=== PATIENT | male | born 1935 | race Caucasian/White ===

== ENCOUNTER → 2021-01-09 08:50 | Outpatient (BNVA) | payer MEDICARE, OTHER, SELFPAY | PROVIDERS: PCP Internal Medicine; Visit Provider Urology | DX: N40.0 Benign prostatic hyperplasia without lower urinary tract symptoms (principal); R35.1 Nocturia | CPT/HCPCS: 51798; 99202 ==

== ENCOUNTER → 2021-01-19 09:57 | Outpatient (BNVA) | payer MEDICARE, OTHER, SELFPAY | PROVIDERS: Visit Provider Urology | DX: N40.0 Benign prostatic hyperplasia without lower urinary tract symptoms (principal) | CPT/HCPCS: 52000; 99212 ==

== ENCOUNTER → 2021-05-02 10:26 | Outpatient (REF) | payer MEDICARE, OTHER, SELFPAY ==
--- NOTE | 2021-05-02 10:44 | CA_ITS ---
Transthoracic Echocardiogram Patient (Last, First, Middle): Zaheer Christensen J Gender: Male Date of : 1935 Age: 85 Procedure Date: 05/02/2021 Procedure Type: Transthoracic Echocardiogram Location: OP Height: 170.18 cm Weight: 74.39 kg BSA: 1.86 m2 Heart Rate: bpm BP: 140 / 80 mmHg Train Clerk: JABARI/SARINA Referring MD: Brissa Castano MD Lever Operator: Tito Chavez MD Symptoms: I25.10 - Atherosclerotic heart disease of [place] coronary... Study Quality: Good ECG Rhythm: Sinus with frequent PVCs Conclusions: - 1. Normal LV systolic function with pseudonormal filling pattern 2. Moderately dilated left atrium 3. 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 Moderately elevated right ventricular systolic pressure 5. No gross pericardial effusion Findings Left Ventricle Normal left ventricular size, thickness, and systolic function. The visually estimated ejection fraction is between 60-65%. There is paradoxical septal motion consistent with post-operative status. Spectral Doppler is indicative of a pseudonormal filling pattern. E/E prime ratio is between 8 and 15 consistent with indeterminate filling pressures. Atria The left atrium is moderately dilated. Interatrial shunt cannot be excluded. The right atrium is likely dilated. Aortic Valve A bioprosthetic aortic valve is present. The prosthetic aortic valve appears to be functioning abnormally. The peak aortic gradient is 71 mmHg.The mean gradient is 39 mmHg. The aortic valve area is 0.81 cm2. There is no aortic valve regurgitation. The valve leaflets are not well visualized. The valve is well seated. This significantly increased mean gradient of 39 mm Hg with calculated valve area of 0.81 centimeters sq. This is suggestive of severe stenosis of the bioprosthetic valve. Mitral Valve There is mild anterior and posterior mitral leaflet thickening. There is trace mitral valve regurgitation. There is no mitral valve stenosis. Pulmonic Valve The pulmonic valve is likely normal. There is trace to mild pulmonic valve regurgitation. Tricuspid Valve Likely normal tricuspid valve structure and function. There is mild tricuspid valve regurgitation. Normal right atrial pressure. Moderate pulmonary hypertension is present. Great Vessels All visible segments of the aorta are normal in size. The pulmonary artery was not well visualized. Venous The inferior vena cava is normal in size and collapses greater than 50% with inspiration. Pericardium/Pleural There is no evidence of pericardial effusion. Prior Study Comparison Significant changes compared to prior study dated: 12/29/2015. Bioprosthetic aortic valve is severely stenotic, clinical correlation suggested Measurements 2D Linear Measurements IVSd: 1.10 0.6-0.9/0.6-1.0 cm LVIDd: 5.32 3.9-5.3/4.2-5.9 cm LVIDd Index: 2.86 2.4-3.2/2.2-3.1 cm/m2 LVIDs: 3.08 2.0-3.6 cm LVPWd: 0.98 0.7-1.1 cm Ao Root: 3.10 2.1-3.5 cm LA Diam: 5.30 2.7-3.8/3.0-4.0 cm LAIDs Index: 2.85 1.5-2.3 cm/m2 LV Mass: 265.01 67-162/88-224 g LV Mass Index: 142.48 43-95/49-115 g/m2 LVOT Diam: 2.00 3.0+(-)1.3 cm 2D Systolic Function EF 4C: 71.70 >55% EF 2C: 68.10 >55% EF BiP: 70.00 >55% Mitral Valve MV Pk E: 0.65 MV PK A: 0.57 MV Decel Time: 487.00 E/A: 1.10 PHT: 143.00 MVA PHT: 1.54 Decel [place]: 1.32 Aortic Valve AoV Pk Siva: 4.21 AoV Mn Siva: 2.97 AoV VTI: 1.07 AoV Pk Grad: 71.00 Aov Mn Grad: 39.00 VIANEY Cont.VTI: 0.81 LVOT LVOT Pk Siva: 1.12 LVOT Mn Siva: 0.71 LVOT VTI: 0.28 LVOT Pk Grad: 5.00 LVOT Mn Grad: 2.00 LVOT Diam: 2.00 LVOT Area: 3.14 Diastolic Function MV Pk E: 0.65 MV Pk A: 0.57 E/A: 1.10 Right Ventricle TAPSE (mm): 1.89 TVS' Siva: 11.40 Tricuspid Valve TR Pk Siva: 3.43 TR Pk Grad: 47.00 RA Press: 3.00 RVSP: 50.00 Great Vessels Aorta Ao Root-2D: 3.10 2.0-3.7 cm Ao Asc: 3.60 2.1-3.4 cm Ao Arch: 2.30 Updated in Other Vendor System with Status of Final Tito Chavez MD electronically signed on 05/02/2021 3:05:46 PM with status of Final
== END ==
LOC: HO.CARD 10:26
PROVIDERS: PCP Internal Medicine; Visit Provider Internal Medicine
DX: I25.10 Atherosclerotic heart disease of native coronary artery without angina pectoris (principal)
CPT/HCPCS: 93306

== ENCOUNTER → 2021-07-20 09:52 | Outpatient (BNVA) | payer MEDICARE, OTHER, SELFPAY | PROVIDERS: PCP Internal Medicine; Visit Provider Urology | DX: N40.1 Benign prostatic hyperplasia with lower urinary tract symptoms (principal); R35.1 Nocturia; N39.0 Urinary tract infection, site not specified | CPT/HCPCS: 51798; 99212 ==

== ENCOUNTER → 2022-01-24 10:52 | Outpatient (BNVA) | payer MEDICARE, OTHER, SELFPAY | PROVIDERS: PCP Internal Medicine; Visit Provider Urology | DX: N40.1 Benign prostatic hyperplasia with lower urinary tract symptoms (principal); R35.1 Nocturia; R39.12 Poor urinary stream; N39.0 Urinary tract infection, site not specified | CPT/HCPCS: 51798; 99212 ==

== ENCOUNTER 2022-06-17 09:30 | Outpatient (REF) | payer MEDICARE, OTHER, SELFPAY ==
[2022-06-17 09:48] LABS: MANUAL DIFF FLAG NO
[2022-06-17 10:14] LABS: Basophils Absolute Auto 0.1 X10*3/uL (0.0-0.2); Basophils Percent Auto 1.1 % (0-2); Eosinophils Absolute Auto 0.2 X10*3/uL (0.0-0.4); Eosinophils Percent Auto 4.6 % (0-4); Hematocrit 35.8 % (42.0-52.0); Hemoglobin 12.1 g/dl (14.0-18.0); Imm Gran Abs Auto 0.01 X10*3/uL (0.00-0.03); Imm Gran Pct Auto 0.2 % (0.0-0.4); Immature Retic Fraction 8.6 % (2.3-13.4); Lymphocytes Absolute Auto 1.5 X10*3/uL (1.2-4.9); Lymphocytes Percent Auto 35.2 % (20-40); Mean Corpuscular HGB Conc 33.8 g/dl (31.0-36.0); Mean Corpuscular Hemoglobin 30.7 pg (27.0-33.0); Mean Corpuscular Volume 90.9 fL (80.0-98.0); Monocytes Absolute Auto 0.4 X10*3/uL (0.1-1.2); Monocytes Percent Auto 9.6 % (2-11); Neutrophils Absolute Auto 2.2 x10*3/uL (2.0-8.3); Neutrophils Percent Auto 49.3 % (45-73); Platelet Count 145 X10*3/uL (160-400); Red Blood Count 3.94 X10*6/uL (4.60-5.80); Red Cell Distribution Width 12.3 % (11.0-16.0); Retic HGB Equivalent 35.2 pg (30.0-35.0); Reticulocytes Absolute 0.039 X10*6/uL (0.026-0.095); White Blood Count 4.4 X10*3/uL (4.8-10.8)
[2022-06-17 10:46] LABS: B Type Natriuretic Peptide 178 pg/mL (<100)
[2022-06-17 10:51] LABS: Alanine Aminotransferase 23 U/L (0-40); Albumin Level 4.3 g/dL (3.5-5.0); Alkaline Phosphatase 49 U/L (39-117); Anion Gap 15 (12-20); Aspartate Amino Transferase 28 U/L (5-37); Bilirubin Total 0.8 mg/dL (0.0-1.0); Blood Urea Nitrogen 36 mg/dL (9-16); Calcium 9.7 mg/dL (8.4-10.2); Carbon Dioxide 22 mmol/L (22-29); Chloride 108 mmol/L (96-108); Cholesterol 162 mg/dL; Estimated Glomerular Filt Rate 35; Glucose Random 96 mg/dL (60-115); HDL Cholesterol 62 mg/dL; Iron 90 mcg/dL (45-160); LDL Cholesterol Calculated 85 mg/dl; Magnesium 2.1 mg/dL (1.6-2.6); Percent Iron Saturation 32 % (15-50); Potassium 4.9 mmol/L (3.3-5.1); Sodium 140 mmol/L (135-145); Total Iron Binding Capacity 280 mcg/dL (228-428); Total Protein 6.8 g/dL (6.5-8.0); Triglycerides 75 mg/dL; Unsaturated Iron Binding 190 ug/dL
[2022-06-17 11:14] LABS: Appearance Urine Clear; Color Urine Yellow; Ferritin 69 ng/mL (20-250); Glucose Urine UA Negative (Negative); Leukocyte Esterase Urine Negative (Negative); Nitrite Urine Negative (Negative); Thyroid Stimulating Hormone 1.72 uIU/mL (0.32-4.0); UMIC TRIGGER UA YES; Urine Blood Trace (Negative); Urine Ketones Negative (Negative); Urine Protein 30 (1+) mg/dL (Neg-Trace); Vitamin D 25-OH Total 27.9 ng/mL (>30)
[2022-06-17 11:18] LABS: Bacteria Urine None Seen (None Seen); Hyaline Casts Urine 0-2 /LPF (0-2); RBC Urine 0-2 /HPF (0-2); Squamous Epithelial Cell Urine 0-2 /HPF (0-2); WBC Urine 0-5 /HPF (0-5)
[2022-06-17 11:22] LABS: Folate 11.7 ng/mL (> or = 4.0); Vitamin B12 305 pg/mL (200-900)
== END 2022-06-17 09:31 | disposition home or self-care (01) ==
LOC: HO.LAB 09:30
PROVIDERS: PCP Internal Medicine; Visit Provider Internal Medicine
DX: N18.32 Chronic kidney disease, stage 3b (principal); I25.10 Atherosclerotic heart disease of native coronary artery without angina pectoris; N40.0 Benign prostatic hyperplasia without lower urinary tract symptoms; E78.00 Pure hypercholesterolemia, unspecified; D64.9 Anemia, unspecified
CPT/HCPCS: 36415; 80053; 80061; 81001; 82306; 82607; 82728; 82746; 83540; 83735; 83880; 84439; 84443; 85025; 85045

== ENCOUNTER → 2023-01-31 10:52 | Outpatient (BNVA) | payer MEDICARE, OTHER, SELFPAY | PROVIDERS: PCP Internal Medicine; Visit Provider Urology | DX: R39.12 Poor urinary stream (principal); R35.1 Nocturia | CPT/HCPCS: 51798; 99212 ==

== ENCOUNTER 2023-06-04 10:09 | Outpatient (AMB) | payer MEDICARE, OTHER, SELFPAY ==
[2023-06-04 10:13] VITALS: BP 180/68; PULSE 51; O2SAT 97; BMI 24.4
--- NOTE | 2023-06-04 10:13 | A.OFFPC_ITS ---
Vital Signs 06/04/23 10:13 Height 5 ft 7 in Weight 156 lb BMI 24.4 BP 180/68 H Blood Pressure Location Lt brachial Position Sitting Pulse 51 Pulse Source Pulse Oximeter Pulse Oximetry (%) 97 Oxygen Delivery Method Room Air Intake Visit Reasons: CAD, Cholesterol Intake Note: Patient here for a follow up CAD, Cholesterol Joiner Helper Required: No Accompanied by: Spouse Allergies No Known Allergies Allergy (Verified 06/04/23 10:17) Medication List - Last Reconciled 06/04/23 by Brissa Castano MD amlodipine 10 mg PO DAILY aspirin (Adult Low Dose Aspirin) 81 mg PO DAILY finasteride 5 mg PO DAILY 90 days lisinopril 10 mg PO DAILY 90 days magnesium 250 mg PO DAILY omeprazole 20 mg PO DAILY rosuvastatin 40 mg PO DAILY tamsulosin 0.4 mg PO BEDTIME Tobacco use date assessed: 12/02/22 Fall risk assessment: No Falls in past year Last assessed Fall Risk: 06/04/23 Dental Screening Dental Screen Date: 06/04/23 Did you have a dental visit in the last 12 months?: No Did you have a dental problem in the last 6 months where you did not have access to dental care?: No Was dental information given to patient?: Patient has dentist HPI CAD, Cholesterol HPI Details 87-year-old male with coronary artery di sease hypertension hypercholesterolemia chronic kidney disease patient has a prosthetic aortic valve coming in for follow-up. Last seen in November 2022. Review of the notes in May patient was seen by Cardiology aortic stenosis/CAD status post AVR CABG 2012 chronic kidney disease carotid stenosis hypertension hypercholesterolemia. Was in the hospital April 2023 complains of fatigue and fogginess not able to do much yd work prosthetic aortic stenosis moderate by hemodynamics valve area of 1.2 cm cardiology does not think that the valve problem is related to patient it has feelings of dizziness patient was ordered treadmill test. Has hospitalization recently echocardiogram 45-50% EF. Patient also follows up with urology once a year BPH history of colovesical fistula no TAVR procedure has finasteride and tamsulosin. PAtient feels getting tachycardia- will be getting stress test alice. wake up in amno energy, light headed- ? was told heart rate was slow in am, no n no v, , was sob and ? chest pain, no dysuria. has an impacted cerumen and wants to clean [facility] Medical History BPH (benign prostatic hyperplasia) Chronic kidney disease GERD (gastroesophageal reflux disease) Hypercholesterolemia Hypertension Surgical History H/O aortic valve replacement History of surgery S/P tonsillectomy Anal fistula Hx of inguinal hernia surgery Social History Housing: House Alcohol intake: current Alcohol intake frequency: 0-2 drinks per day Patient Tobacco Use Status: Former Tobacco user Tobacco use type: Cigarette e-Cigarette/Vaping Use: Never Used Second Hand Smoke Exposure: No service: No Current occupational status: retired Current occupational exposures/hazards: No Cognitive needs: No Hearing needs: Yes Vision needs: Yes Questionnaire PHQ-9 Over the last 2 weeks, how often have you been bothered by any of the following problems? 1. Little interest or pleasure in doing things: not at all 2. Feeling down, depressed, or hopeless: not at all 3. Trouble falling or staying asleep, or sleeping too much: not at all 4. Feeling tired or having little energy: not at all 5. Poor appetite or overeating: not at all 6. Feeling bad about yourself - or that you are a failure or have let yourself or your family down: not at all 7. Trouble concentrating on things, such as reading the newspaper or watching television: not at all 8. Moving or speaking so slowly that other people could have noticed. Or the opposite - being so fidgety or restless that you have been moving around a lot more than usual: not at all 9. Thoughts that you would be better off or of hurting yourself in some way: not at all Total score: 0 Depression Screening Interpretation: Negative Depression Screening Done: Yes Source: Developed by Drs. Giuliano Davalos, Celia Wilson, José Manuel Mckenzie and colleagues, with an educational nel from [employer] Thrive Questionnaire Date Thrive assessed: 06/04/23 I am a: Patient What is your living situation today?: I have a steady place to live Within the past 12 months, did the food you bought not last and you didn't have the money to get more?: Never true Within the past 12 months, did you worry whether your food would run out before you got money to buy more?: Never true Do you have trouble paying for medicines?: No Do you have trouble getting transportation to medical appointments?: No Do you have trouble paying your heating and electricity bill?: No Do you have trouble taking care of your child, family member or friend?: No Do you have trouble with day-to-day activities such as bathing, preparing meals, shopping, managing finances, etc.?: No Are you currently unemployed and looking for a job?: No Are you interested in more education?: No Please select the resources that you would like help with: None Currently or been in a relationship where the following occur: no concerns reported AUDIT C Alcohol Use Questionnaire (AUDIT-C) 1. How often do you have a drink containing alcohol?: 4 or more times a week 2. How many drinks containing alcohol do you have on a typical day when you are drinking?: 1 or 2 3. How often do you have six or more drinks on one occasion?: Never Total Score: 4 BARI-7 AMB Questionnaire BARI-7 Date BARI - 7 assessed: 06/04/23 Feeling nervous, anxious, or on edge: 0 = Not at all Not being able to stop or control worryin = Not at all Worrying too much about different things: 0 = Not at all Trouble relaxin = Not at all Being so restless that it is hard to sit still: 0 = Not at all Becoming easily annoyed or irritable: 0 = Not at all Feeling afraid as if something awful might happen: 0 = Not at all Total BARI-7 score (0-4 normal; 5-9 mild; 10-14 moderate; 15-21 severe): 0 Source: Developed by Drs. Giuliano Davalos, Celia Wilson, José Manuel Mckenzie and colleagues, with an educational nel from [employer]. Physical exam (Primary Care) Vital Signs: Last Vital Signs Pulse 51 06/04/23 10:13 BP 180/68 H 06/04/23 10:13 Pulse Ox 97 06/04/23 10:13 Oxygen Delivery Method Room Air 06/04/23 10:13 BMI result Body Mass Index 24.4 Tobacco/Smoking Status: Tobacco use Status Tobacco use date assessed 12/02/22 06/04/23 10:21 Patient Tobacco Use Status Former Tobacco user 06/04/23 10:21 Tobacco use type Cigarette 06/04/23 10:21 e-Cigarette/Vaping Use Never Used 06/04/23 10:21 PHQ-9: PHQ-9 Score PHQ-9: Total score 0 06/04/23 11:06 Depression Screening Interpretation: Negative Thrive Assessment: Date of Thrive Assessment Date Thrive assessed 06/04/23 06/04/23 10:21 Currently or been in a relationship where the following occur: no concerns reported Const Other: impacted cerumen bilateral General: alert; No acute distress Eyes Conjunctivae: conjunctivae normal Resp Auscultation: clear to auscultation bilaterally Cardio Rate: regular rate Rhythm: regular rhythm GI Inspection: Yes normal to inspection Extrem General: Yes normal to inspection and No edema Office Procedures Cerumen Removal From which ear canal was the cerumen removed: bilateral Removal: irrigation, otoscope w/curette, cerumen loop/spoon and other Notes: patient tolerated procedure well, no complications and ear canal clear [id number] Irrigation/Lavage Flu Questionnaire Does the patient have a severe egg allergy?: No Does the patient have severe life threatening allergies?: No Does the patient have a fever or illness today?: No Has the patient ever had Guillain-Mahomet Syndrome?: No Has the patient ever had any past reaction to a flu shot?: No Immunizations flu vacc [id number] 6mos up(PF) 60 mcg(15 mcgx4)/0.5 mL IM syringe Performing Provider: Brissa Castano MD [facility] Administered by: MANGO Valderrama on 06/04/23 11:06 Dose Route Admin Location Dispensed Lot Number Expiration Date NDC Document Preparer Microfilming 0.5 mL IM Left Deltoid 0.5 mL [id number] 02/08/24 [id number] [employer] VIS Given Date VIS Provided VIS Publication Date 06/04/23 Single Vaccine 21 Eligibility Eligibility Date Funding Source Not [facility] Eligible 06/04/23 Private Assessment and Plan Assessment & Plan (1) Prosthetic aortic valve stenosis: Comment: January 2022, May 2023 Code(s): T82.857A - Stenosis of other cardiac prosthetic devices, implants and grafts, initial encounter Plan: Patient follows up with Cardiology and continued to be monitored (2) CAD (coronary artery disease): Comment: CABG x 3 2012 [facility] C[facility]di[facility] Brian White Code(s): I25.10 - Atherosclerotic heart disease of [place] coronary artery without angina pectoris Plan: Control the cholesterol, weight, blood pressure, continuing with the aspirin patient will be having a treadmill stress test under cardiology (3) BPH (benign prostatic hyperplasia): Code(s): N40.0 - Benign prostatic hyperplasia without lower urinary tract symptoms Plan: Continue to follow-up with Urology on finasteride 5 mg once a day and tamsulosin once a day (4) Chronic kidney disease: Comment: nephrology Code(s): N18.9 - Chronic kidney disease, unspecified Qualifiers: Chronic kidney disease stage: stage 3 (moderate) Chronic kidney disease stage 3 subtype: stage 3b (GFR 30-44) Qualified Code(s): N18.32 - Chronic kidney disease, stage 3b Plan: Keep well hydrated avoid NSAIDs (5) Hypercholesterolemia: Code(s): E78.00 - Pure hypercholesterolemia, unspecified Plan: Avoid fried foods, chicken skin, eggs, butter margarine, pastries and meat. Be it pork or beef they have a lot of cholesterol on rosuvastatin 40 goal of LDL is less than 70 and triglyceride of less than 150 (6) Hypertension: Code(s): I10 - Essential (primary) hypertension Qualifiers: Hypertension type: essential hypertension Qualified Code(s): I10 - Essential (primary) hypertension Plan: Continue with blood pressure medication. Decrease salt intake and exercise patient is taking lisinopril 10 mg once a day and amlodipine 10 mg (7) Impacted cerumen of both ears: Code(s): H61.23 - Impacted cerumen, bilateral Plan: irrigation and scoop done TM intact Orders: Orders Influenza [id number] Immunization Today Z23 - Encounter for immunization Medications: Refilled omeprazole 20 mg PO DAILY 90 caps 3RF rosuvastatin 40 mg PO DAILY 90 tabs 2RF E78.00 - Pure hypercholesterolemia, unspecified finasteride 5 mg PO DAILY 90 days 90 tabs 1RF C61 - Malignant neoplasm of prostate, N40.0 - Benign prostatic hyperplasia without lower urinary tract symptoms tamsulosin 0.4 mg PO BEDTIME 90 caps 2RF Coding Level of Care Code Est Pt Level 4 (88797) Diagnoses 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 CAD (coronary artery disease) I25.10 BPH (benign prostatic hyperplasia) N40.0 Stage 3b chronic kidney disease N18.32 Chronic kidney disease stage: stage 3 (moderate) Chronic kidney disease stage 3 subtype: stage 3b (GFR 30-44) Hypercholesterolemia E78.00 Essential hypertension I10 Hypertension type: essential hypertension Impacted cerumen of both ears H61.23 CPT Codes Office Procedure - CPT: 80383-Vzq Irrigation/Lavage ([id number])
== END 2023-06-04 11:04 | disposition home or self-care (01) ==
PROVIDERS: Visit Provider Internal Medicine
DX: N18.32 Chronic kidney disease, stage 3b (principal); T82.857A Stenosis of other cardiac prosthetic devices, implants and grafts, initial encounter; I25.10 Atherosclerotic heart disease of native coronary artery without angina pectoris; N40.0 Benign prostatic hyperplasia without lower urinary tract symptoms; E78.00 Pure hypercholesterolemia, unspecified; I10 Essential (primary) hypertension; H61.23 Impacted cerumen, bilateral; Z23 Encounter for immunization
CPT/HCPCS: 69210; 90471; 90686; 99214

== ENCOUNTER 2023-12-04 10:04 | Outpatient (AMB) | payer MEDICARE, OTHER, SELFPAY ==
--- NOTE | 2023-12-04 10:13 | MHC.OFFVIS ---
Intake Visit Reasons: 6m/PVR Intake Note: Patient is Present for Follow Up Urology Medication: Finasteride, Tamsulosin Antibiotic Allergies: None Blood Thinners: Aspirin PVR: 23 Allergies No Known Allergies Allergy (Verified 12/04/23 10:16) HPI Comments Details: Zaheer is a very pleasant male. He is a patient of Dr. Castano. He is seen for the following urologic reasons. - BPH - prior colovesical fistula Currently with finasteride and tamsulosin Recently waking more often at night with increased volume Minimal edema around ankles in end of day since got back from [place] Has had some weakness of stream and past couple of months Continue with current medications We were considering dropping tamsulosin Did not undergo TAVR procedure Lower urinary tract symptoms Current therapy tamsulosin and finasteride Current symptoms Other symptoms stream is sufficient with minimal hesitancy Cystoscopy 12/29 partial lateral crowding but otherwise open Colovesical fistula Approximately 2015 had repair with removal of diverticular segment Otherwise well Has had recurrent UTI in the past responsive to Levaquin PFSH Medical History BPH (benign prostatic hyperplasia) GERD (gastroesophageal reflux disease) Chronic kidney disease Hypercholesterolemia Hypertension Surgical History H/O aortic valve replacement History of surgery S/P tonsillectomy Anal fistula Hx of inguinal hernia surgery Social History Housing: House Alcohol intake: current Alcohol intake frequency: 0-2 drinks per day Patient Tobacco Use Status: Former Tobacco user Tobacco use type: Cigarette e-Cigarette/Vaping Use: Never Used Second Hand Smoke Exposure: No service: No Current occupational status: retired Current occupational exposures/hazards: No Cognitive needs: No Hearing needs: Yes Vision needs: Yes Review of Systems Const Denies chills and Denies fever(s) Card Reports no additional complaints and Denies syncope Resp Denies cough GI Denies abdominal pain and Denies heartburn Reports as per HPI and Denies change in libido Neuro Denies syncope Psych Denies change in libido Endo Denies change in libido Physical Exam Const General: cooperative, healthy appearing, comfortable and no acute distress Orientation/consciousness: patient oriented x3 HEENT Face and sinus: Yes normal facial exam Mouth: moist mucous membranes Neck Neck: Yes normal visual inspection, Yes full ROM and Yes trachea midline Chest Chest palpation & inspection: normal inspection of the chest Resp Effort & Inspection: normal respiratory effort, able to speak in complete sentences and no respiratory distress GI Inspection: Yes normal to inspection Back/Spine/Pelvis Cervical Spine: normal cervical lordosis Thoracic/Lumbar Spine: thoracic and lumbar spine normal to inspection Skin General skin exam: no rashes or lesions noted Neuro General: patient oriented x3, gait normal, tone normal and moves all extremities Extrem General: Yes normal to inspection and Yes capillary refill normal Office Procedures Post Void Residual Post Residual Void Post Void Residual (PVR): 23 [id number] Void Residual by ultrasound Assessment & Plan Assessment & Plan (1) Weak urinary stream: Code(s): R39.12 - Poor urinary stream Category: Medical (2) Recurrent UTI: Code(s): N39.0 - Urinary tract infection, site not specified Category: Medical (3) Nocturia more than twice per night: Code(s): R35.1 - Nocturia Category: Medical Plan Six-month follow-up PVR Orders: Orders AMB Post Void Residual by ultrasound Today R39.12 - Poor urinary stream Medications: Refilled finasteride 5 mg PO DAILY 90 days 90 tabs 1RF C61 - Malignant neoplasm of prostate, N40.0 - Benign prostatic hyperplasia without lower urinary tract symptoms tamsulosin 0.4 mg PO BEDTIME 90 caps 2RF R35.1 - Nocturia Patient Instructions: Imaging studies, laboratory and physical exam results were discussed and reviewed in detail. No major barriers to patient understanding were identified. An opportunity to ask questions regarding the treatment plan was provided. All questions were answered. The patient expressed understanding and agreement with the above treatment plan. The patient is aware they should contact our office by phone for worsening of their current condition or the appearance of new urologic symptoms. Compliance is encouraged with any medications and followup testing that is ordered. It is a privilege to participate in the urologic care of your patient. If you have any questions or concerns regarding treatment for the above conditions, or other urologic issues, please do not hesitate to contact me. The office telephone contact is [phone]. This note is constructed using voice recognition software. While every effort has been made to ensure accuracy interactive media director errors may have been included. Yours sincerely, Dr Jack Ann MD, BRITTANIE [facility] - Urology Providers of Expert, Compassionate Care for the Genitourinary System Coding Level of Care Code Est Pt Level 3 (28314) Diagnoses Weak urinary stream R39.12 Recurrent UTI N39.0 Nocturia more than twice per night R35.1 CPT Codes Post Residual Void - PVR CPT Code: 01498-[id number] Void Residual by ultrasound ([id number])
== END 2023-12-04 10:44 | disposition home or self-care (01) ==
PROVIDERS: PCP Internal Medicine; Visit Provider Urology
DX: R39.12 Poor urinary stream (principal); N39.0 Urinary tract infection, site not specified; R35.1 Nocturia
CPT/HCPCS: 99213

== ENCOUNTER → 2023-12-04 10:04 | Outpatient (BNVA) | payer MEDICARE, OTHER, SELFPAY | PROVIDERS: PCP Internal Medicine; Visit Provider Urology | DX: N40.1 Benign prostatic hyperplasia with lower urinary tract symptoms (principal); R39.12 Poor urinary stream; R35.1 Nocturia; N39.0 Urinary tract infection, site not specified; Z79.899 Other long term (current) drug therapy | CPT/HCPCS: 51798; 99212 ==

== ENCOUNTER 2024-04-01 14:11 | Outpatient (AMB) | payer MEDICARE, OTHER, SELFPAY ==
[2024-04-01 14:14] VITALS: BP 146/72; PULSE 75; O2SAT 98; BMI 23.8
--- NOTE | 2024-04-01 14:14 | A.OFFPC_ITS ---
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 Accompanied by: Spouse Allergies No Known Allergies Allergy (Verified 04/01/24 14:17) Medication List - Last Reconciled 04/01/24 by Brissa Castano MD amlodipine 10 mg PO DAILY amoxicillin 2,000 mg orally 1 hour from the procedure; aspirin (Adult Low Dose Aspirin) 81 mg PO DAILY finasteride 5 mg PO DAILY 90 days lisinopril 10 mg PO DAILY 90 days magnesium 250 mg PO DAILY omeprazole 20 mg PO DAILY rosuvastatin 40 mg PO DAILY tamsulosin 0.4 mg PO BEDTIME Tobacco use date assessed: 04/01/24 Fall risk assessment: No Falls in past year Last assessed Fall Risk: 04/01/24 Dental Screening Dental Screen Date: 04/01/24 Did you have a dental visit in the last 12 months?: Yes Did you have a dental problem in the last 6 months where you did not have access to dental care?: No Was dental information given to patient?: Patient has dentist HPI F/U CAD HPI Details 88-year-old male with coronary artery di sease with a prosthetic aortic valve BPH chronic kidney disease hypertension hypercholesterolemia coming in for follow-up. Last seen in 05/30/2023. Patient has nocturia and has been seeing Urology history of BPH and a history of colovesical fistula 2016 on finasteride and tamsulosin ultrasound done PVR of 23. Patient follows up with Cardiology last seen in July.(severe aortic stenosis 2012 angiogram multivessel CAD underwent CABG and bioprosthetic valve was placed 2012) aortic stenosis moderate valve area is 1.2 cm treadmill stress test did not show chronotropic incompetence advised echo in 1 year.. Patient has prosthetic aortic valve moderate advised retest in 1 year. PAtient just came from the hospital after skin basal post auricular and had impacted cerumen R ear but this is checked and is negative PFS Medical History BPH (benign prostatic hyperplasia) GERD (gastroesophageal reflux disease) Chronic kidney disease Hypercholesterolemia Hypertension Surgical History H/O aortic valve replacement History of surgery S/P tonsillectomy Anal fistula Hx of inguinal hernia surgery Social History Housing: House Alcohol intake: current Alcohol intake frequency: 0-2 drinks per day Patient Tobacco Use Status: Former Tobacco user Tobacco use type: Cigarette e-Cigarette/Vaping Use: Never Used Second Hand Smoke Exposure: No service: No Current occupational status: retired Current occupational exposures/hazards: No Cognitive needs: No Hearing needs: Yes Vision needs: Yes Questionnaire PHQ-9 Over the last 2 weeks, how often have you been bothered by any of the following problems? 1. Little interest or pleasure in doing things: not at all 2. Feeling down, depressed, or hopeless: not at all 3. Trouble falling or staying asleep, or sleeping too much: not at all 4. Feeling tired or having little energy: not at all 5. Poor appetite or overeating: not at all 6. Feeling bad about yourself - or that you are a failure or have let yourself or your family down: not at all 7. Trouble concentrating on things, such as reading the newspaper or watching television: not at all 8. Moving or speaking so slowly that other people could have noticed. Or the opposite - being so fidgety or restless that you have been moving around a lot more than usual: not at all 9. Thoughts that you would be better off or of hurting yourself in some way: not at all Total score: 0 Depression Screening Interpretation: Negative Depression Screening Done: Yes Source: Developed by Drs. Giuliano Davalos, eClia Wilson, José Manuel Mckenzie and colleagues, with an educational nel from [employer]. Thrive Questionnaire Date Thrive assessed: 04/01/24 I am a: Patient What is your living situation today?: I have a steady place to live Within the past 12 months, did the food you bought not last and you didn't have the money to get more?: Never true Within the past 12 months, did you worry whether your food would run out before you got money to buy more?: Never true Do you have trouble paying for medicines?: No Do you have trouble getting transportation to medical appointments?: No Do you have trouble paying your heating and electricity bill?: No Do you have trouble taking care of your child, family member or friend?: No Do you have trouble with day-to-day activities such as bathing, preparing meals, shopping, managing finances, etc.?: No Are you currently unemployed and looking for a job?: No Are you interested in more education?: No Please select the resources that you would like help with: None THRIVE Score: 0 AUDIT C Alcohol Use Questionnaire (AUDIT-C) 1. How often do you have a drink containing alcohol?: 4 or more times a week 2. How many drinks containing alcohol do you have on a typical day when you are drinking?: 1 or 2 3. How often do you have six or more drinks on one occasion?: Never Total Score: 4 BARI-7 AMB Questionnaire BARI-7 Date BARI - 7 assessed: 04/01/24 Feeling nervous, anxious, or on edge: 0 = Not at all Not being able to stop or control worryin = Not at all Worrying too much about different things: 0 = Not at all Trouble relaxin = Not at all Being so restless that it is hard to sit still: 0 = Not at all Becoming easily annoyed or irritable: 0 = Not at all Feeling afraid as if something awful might happen: 0 = Not at all Total BARI-7 score (0-4 normal; 5-9 mild; 10-14 moderate; 15-21 severe): 0 Source: Developed by Drs. Giuliano Davalos, Celia Wilson, José Manuel Mckenzie and colleagues, with an educational nel from [employer]. Physical exam (Primary Care) Vital Signs: Last Vital Signs Pulse 75 04/01/24 14:14 BP 146/72 H 04/01/24 14:14 Pulse Ox 98 04/01/24 14:14 Oxygen Delivery Method Room Air 04/01/24 14:14 BMI result Body Mass Index 23.8 Tobacco/Smoking Status: Tobacco use Status Tobacco use date assessed 04/01/24 04/01/24 14:20 Patient Tobacco Use Status Former Tobacco user 04/01/24 14:20 Tobacco use type Cigarette 04/01/24 14:20 e-Cigarette/Vaping Use Never Used 04/01/24 14:20 PHQ-9: PHQ-9 Score PHQ-9: Total score 0 04/01/24 14:20 Depression Screening Interpretation: Negative Thrive Assessment: Date of Thrive Assessment Date Thrive assessed 04/01/24 04/01/24 14:20 Const General: alert; No acute distress Eyes Conjunctivae: conjunctivae normal Resp Auscultation: clear to auscultation bilaterally Cardio Rate: regular rate Rhythm: regular rhythm GI Inspection: Yes normal to inspection Extrem General: Yes normal to inspection and No edema Assessment and Plan Assessment & Plan (1) Prosthetic aortic valve stenosis: Comment: January 2022, May 2023, July 2023 1.2 Code(s): T82.857A - Stenosis of other cardiac prosthetic devices, implants and grafts, initial encounter Plan: Has been seen by Cardiology in July and advised repeat echocardiogram in 1 year. Did have an EKG stress in the notes negative (2) CAD (coronary artery disease): Comment: CABG x 3 2012 [facility] CArdiology Brian White Code(s): I25.10 - Atherosclerotic heart disease of [place] coronary artery without angina pectoris Plan: Control the cholesterol, weight, blood pressure, takes aspirin 81 mg once a day (3) Chronic kidney disease: Comment: nephrology Code(s): N18.9 - Chronic kidney disease, unspecified Qualifiers: Chronic kidney disease stage: stage 3 (moderate) Chronic kidney disease stage 3 subtype: stage 3b (GFR 30-44) Qualified Code(s): N18.32 - Chronic kidney disease, stage 3b Plan: Keep well hydrated avoid NSAIDs continue to monitor and follow-up with Nephrology (4) Hypertension: Code(s): I10 - Essential (primary) hypertension Qualifiers: Hypertension type: essential hypertension Qualified Code(s): I10 - Essential (primary) hypertension Plan: Continue with blood pressure medication. Decrease salt intake and exercise takes lisinopril 10 mg once a day amlodipine 10 mg once a day (5) Hypercholesterolemia: Code(s): E78.00 - Pure hypercholesterolemia, unspecified Plan: Avoid fried foods, chicken skin, eggs, butter margarine, pastries and meat. Be it pork or beef they have a lot of cholesterol LDL goal of less than 70 and triglyceride of less than 150. On rosuvastatin 40 mg once a day (6) BPH (benign prostatic hyperplasia): Code(s): N40.0 - Benign prostatic hyperplasia without lower urinary tract symptoms Plan: Continue to follow-up with urology on tamsulosin and finasteride Orders: Orders B Type Natriuretic Peptide Today I25.10 - Atherosclerotic heart disease of [place] coronary artery without angina pectoris Magnesium Today I25.10 - Atherosclerotic heart disease of [place] coronary artery without angina pectoris Complete Blood Count Auto Diff Today I25.10 - Atherosclerotic heart disease of [place] coronary artery without angina pectoris Comprehensive Met. Panel Today I25.10 - Atherosclerotic heart disease of [place] coronary artery without angina pectoris Lipid Panel Today E78.00 - Pure hypercholesterolemia, unspecified, I25.10 - Atherosclerotic heart disease of [place] coronary artery without angina pectoris Thyroid Stimulating Hormone Today I25.10 - Atherosclerotic heart disease of [place] coronary artery without angina pectoris Vitamin B12 and Folate Today I25.10 - Atherosclerotic heart disease of [place] coronary artery without angina pectoris Free T4 (Free Thyroxine) Today I25.10 - Atherosclerotic heart disease of [place] coronary artery without angina pectoris Phosphorus Today I25.10 - Atherosclerotic heart disease of [place] coronary artery without angina pectoris Medications: Refilled amoxicillin (4 x 500 mg) 2,000 mg orally 1 hour from the procedure; 8 caps 2RF E78.00 - Pure hypercholesterolemia, unspecified, I25.10 - Atherosclerotic heart disease of [place] coronary artery without angina pectoris Coding Level of Care Code Est Pt Level 4 (85109) Complex EM visit Add On G2211 Diagnoses 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 CAD (coronary artery disease) I25.10 Stage 3b chronic kidney disease N18.32 Chronic kidney disease stage: stage 3 (moderate) Chronic kidney disease stage 3 subtype: stage 3b (GFR 30-44) Essential hypertension I10 Hypertension type: essential hypertension Hypercholesterolemia E78.00 BPH (benign prostatic hyperplasia) N40.0
== END 2024-04-01 15:03 | disposition home or self-care (01) ==
PROVIDERS: PCP Internal Medicine; Visit Provider Internal Medicine
DX: I12.9 Hypertensive chronic kidney disease with stage 1 through stage 4 chronic kidney disease, or unspecified chronic kidney disease (principal); N18.32 Chronic kidney disease, stage 3b; T82.857A Stenosis of other cardiac prosthetic devices, implants and grafts, initial encounter; I25.10 Atherosclerotic heart disease of native coronary artery without angina pectoris; E78.00 Pure hypercholesterolemia, unspecified; N40.0 Benign prostatic hyperplasia without lower urinary tract symptoms
CPT/HCPCS: 99214; G2211

== ENCOUNTER 2024-06-03 11:29 | Outpatient (AMB) | payer MEDICARE, OTHER, SELFPAY ==
--- NOTE | 2024-06-03 11:30 | A.OFFVIS_ITS ---
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 He is a patient of Dr. Castano. He is seen for the following urologic reasons. - BPH - prior colovesical fistula Six-month follow-up Continue with finasteride and tamsulosin Did not undergo TAVR procedure Lower urinary tract symptoms Current therapy tamsulosin and finasteride Current symptoms Other symptoms stream is sufficient with minimal hesitancy Cystoscopy 12/29 partial lateral crowding but otherwise open Colovesical fistula Approximately 2015 had repair with removal of diverticular segment Otherwise well Has had recurrent UTI in the past responsive to Levaquin PFSH Medical History BPH (benign prostatic hyperplasia) GERD (gastroesophageal reflux disease) Chronic kidney disease Hypercholesterolemia Hypertension Surgical History H/O aortic valve replacement History of surgery S/P tonsillectomy Anal fistula Hx of inguinal hernia surgery Social History Housing: House Alcohol intake: current Alcohol intake frequency: 0-2 drinks per day Patient Tobacco Use Status: Former Tobacco user Tobacco use type: Cigarette e-Cigarette/Vaping Use: Never Used Second Hand Smoke Exposure: No service: No Current occupational status: retired Current occupational exposures/hazards: No Cognitive needs: No Hearing needs: Yes Vision needs: Yes Office Procedures Post Void Residual Post Residual Void Post Void Residual (PVR): 0 14129-Uatd Void Residual by ultrasound Assessment & Plan Assessment & Plan (1) BPH (benign prostatic hyperplasia): Code(s): N40.0 - Benign prostatic hyperplasia without lower urinary tract symptoms Category: Medical (2) Nocturia more than twice per night: Code(s): R35.1 - Nocturia Category: Medical Plan Twelve month follow-up Orders: Orders AMB Post Void Residual by ultrasound Today R39.12 - Poor urinary stream Medications: Changed From tamsulosin 0.4 mg PO BEDTIME 90 caps 2RF R35.1 - Nocturia To tamsulosin 0.4 mg PO BEDTIME 90 days 90 caps 3RF R35.1 - Nocturia Refilled finasteride 5 mg PO DAILY 90 days 90 tabs 3RF C61 - Malignant neoplasm of prostate, N40.0 - Benign prostatic hyperplasia without lower urinary tract symptoms Patient Instructions: Imaging studies, laboratory and physical exam results were discussed and reviewed in detail. No major barriers to patient understanding were identified. An opportunity to ask questions regarding the treatment plan was provided. All questions were answered. The patient expressed understanding and agreement with the above treatment plan. The patient is aware they should contact our office by phone for worsening of their current condition or the appearance of new urologic symptoms. Compliance is encouraged with any medications and followup testing that is ordered. It is a privilege to participate in the urologic care of your patient. If you have any questions or concerns regarding treatment for the above conditions, or other urologic issues, please do not hesitate to contact me. The office telephone contact is [phone]. This note is constructed using voice recognition software. While every effort has been made to ensure accuracy associate professor of pathology errors may have been included. Yours sincerely, Dr Jack Ann MD, [facility] - Urology Providers of Expert, Compassionate Care for the Genitourinary System Coding Level of Care Code Est Pt Level 3 (31639) Diagnoses BPH (benign prostatic hyperplasia) N40.0 Nocturia more than twice per night R35.1 CPT Codes Post Residual Void - PVR CPT Code: 83430-[facility] Void Residual by ultrasound ([id number])
== END 2024-06-03 12:08 | disposition home or self-care (01) ==
PROVIDERS: PCP Internal Medicine; Visit Provider Urology
DX: N40.0 Benign prostatic hyperplasia without lower urinary tract symptoms (principal); R35.1 Nocturia
CPT/HCPCS: 99213

== ENCOUNTER → 2024-06-03 11:29 | Outpatient (BNVA) | payer MEDICARE, OTHER, SELFPAY | PROVIDERS: PCP Internal Medicine; Visit Provider Urology | DX: N40.1 Benign prostatic hyperplasia with lower urinary tract symptoms (principal); R35.1 Nocturia; R39.12 Poor urinary stream; C61 Malignant neoplasm of prostate; Z79.899 Other long term (current) drug therapy | CPT/HCPCS: 51798; 99212 ==

== ENCOUNTER 2024-07-01 09:45 | Outpatient (AMB) | payer MEDICARE, OTHER, SELFPAY ==
--- NOTE | 2024-07-01 09:46 | MHC.PC.OV ---
Vital Signs 07/01/24 09:47 07/01/24 10:31 Height 5 ft 7 in Weight 154 lb 0.2 oz BMI 24.1 BP 174/68 H 162/70 H Blood Pressure Location Lt brachial Lt brachial Position Sitting Sitting Pulse 52 Pulse Source Pulse Oximeter Pulse Oximetry (%) 99 Oxygen Delivery Method Room Air Intake Visit Reasons: 3 Month F/U Allergies No Known Allergies Allergy (Verified 07/01/24 09:50) Medication List - Last Reconciled 07/01/24 by Jane William PA-C amlodipine 10 mg PO DAILY amoxicillin 2,000 mg orally 1 hour from the procedure; aspirin (Adult Low Dose Aspirin) 81 mg PO DAILY finasteride 5 mg PO DAILY 90 days lisinopril 10 mg PO DAILY 90 days magnesium 250 mg PO DAILY omeprazole 20 mg PO DAILY rosuvastatin 40 mg PO DAILY tamsulosin 0.4 mg PO BEDTIME 90 days Tobacco use date assessed: 04/01/24 Fall risk assessment: No Falls in past year Last assessed Fall Risk: 07/01/24 Dental Screening Dental Screen Date: 04/01/24 HPI 3 Month F/U HPI Details 88-year-old male with past medical history of coronary artery disease with a prosthetic aortic valve, BPH, chronic kidney disease, hypertension, hypercholesterolemia last seen by Dr. Castano 04/01/2024 coming in for follow up.? In review of the notes patient was seen by Urology 06/03/2024 continue on current medication and follow up in 6 months. 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 He has not taken his blood pressures at home but he does have elevated blood pressures while in the office. [facility] Medical History BPH (benign prostatic hyperplasia) GERD (gastroesophageal reflux disease) Chronic kidney disease Hypercholesterolemia Hypertension Surgical History H/O aortic valve replacement History of surgery S/P tonsillectomy Anal fistula Hx of inguinal hernia surgery Social History Housing: House Alcohol intake: current Alcohol intake frequency: 0-2 drinks per day Patient Tobacco Use Status: Former Tobacco user Tobacco use type: Cigarette e-Cigarette/Vaping Use: Never Used Second Hand Smoke Exposure: No service: No Current occupational status: retired Current occupational exposures/hazards: No Cognitive needs: No Hearing needs: Yes Vision needs: Yes Questionnaire Thrive Questionnaire Date Thrive assessed: 04/01/24 AUDIT C Alcohol Use Questionnaire (AUDIT-C) 2. How many drinks containing alcohol do you have on a typical day when you are drinking?: 1 or 2 3. How often do you have six or more drinks on one occasion?: Never Total Score: 0 BARI-7 AMB Questionnaire BARI-7 Date BARI - 7 assessed: 04/01/24 Source: Developed by Drs. Giuliano Davalos, Celia Wilson, José Manuel Mckenzie and colleagues, with an educational nel from [employer]. Review of Systems Const Denies body aches, Denies chills, Denies fever(s), Denies headache(s) and Denies poor appetite Eyes Reports no additional complaints ENT Denies dizziness and Denies headache(s) Card Denies chest pain, Denies syncope, Denies edema, Denies irregular heart rhythm, Denies lightheadedness, Denies dyspnea, Denies dyspnea on exertion and Denies orthopnea Resp Denies cough, Denies dyspnea and Denies dyspnea on exertion GI Denies nausea and Denies vomiting Reports no additional complaints Musc Reports no additional complaints and Denies abnormal gait Skin/Breast Reports system reviewed and no additional complaints, except as documented Neuro Denies abnormal gait, Denies dizziness, Denies syncope and Denies headache(s) Psych Reports no additional complaints Physical exam (Primary Care) Vital Signs: Last Vital Signs Pulse 52 07/01/24 09:47 BP 162/70 H 07/01/24 10:31 Pulse Ox 99 07/01/24 09:47 Oxygen Delivery Method Room Air 07/01/24 09:47 BMI result Body Mass Index 24.1 Tobacco/Smoking Status: Tobacco use Status Tobacco use date assessed 04/01/24 07/01/24 09:52 Patient Tobacco Use Status Former Tobacco user 07/01/24 09:52 Tobacco use type Cigarette 07/01/24 09:52 e-Cigarette/Vaping Use Never Used 07/01/24 09:52 Thrive Assessment: Date of Thrive Assessment Date Thrive assessed 04/01/24 07/01/24 09:52 Const General: cooperative, healthy appearing, comfortable and no acute distress Orientation/consciousness: patient oriented x3 HENMT Head: Yes normocephalic Ears: hearing grossly normal bilaterally and Abnormal EAC present excessive cerumen bilateral General nose exam: Normal external nose present Eyes General: appearance normal, both eyes and all related structures Conjunctivae: conjunctivae normal Neck Neck: Yes full ROM and Yes no lymphadenopathy Resp Effort & Inspection: normal respiratory effort Auscultation: clear to auscultation bilaterally, no crackles, no rales, no rhonchi and no wheezes Cardio Rate: regular rate Rhythm: regular rhythm Skin General skin exam: no rashes or lesions noted Neuro General: patient oriented x3 Gait exam (Neuro): Normal gait present Extrem General: Yes normal to inspection, Yes full ROM and No edema Psych Affect: normal affect Attitude: cooperative Insight: Good insight present (Psych) Judgement: Good judgement present (Psych) Coding Level of Care Code Est Pt Level 3 (41524) Diagnoses Impacted cerumen of both ears H61.23 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 CAD (coronary artery disease) I25.10 Stage 3b chronic kidney disease N18.32 Chronic kidney disease stage: stage 3 (moderate) Chronic kidney disease stage 3 subtype: stage 3b (GFR 30-44) Hypercholesterolemia E78.00 Essential hypertension I10 Hypertension type: essential hypertension Assessment & Plan Assessment & Plan (1) Impacted cerumen of both ears: Code(s): H61.23 - Impacted cerumen, bilateral Category: Medical Plan: Patient has a impacted cerumen of both ears some of which was removed today. Advised to book an ear lavage for cleaning. (2) Prosthetic aortic valve stenosis: Comment: January 2022, May 2023, July 2023 1.2 Code(s): T82.857A - Stenosis of other cardiac prosthetic devices, implants and grafts, initial encounter Category: Medical Plan: Continue to follow with Cardiology. Recently had echocardiogram completed we will request these results from [facility]. (3) CAD (coronary artery disease): Comment: CABG x 3 2012 [facility] CArdiology Brian White Code(s): I25.10 - Atherosclerotic heart disease of [place] coronary artery without angina pectoris Category: Medical Plan: Advised good control of blood pressure, cholesterol and blood sugars. BNP elevated we will redraw. (4) Chronic kidney disease: Comment: nephrology Code(s): N18.9 - Chronic kidney disease, unspecified Category: Medical Qualifiers: Chronic kidney disease stage: stage 3 (moderate) Chronic kidney disease stage 3 subtype: stage 3b (GFR 30-44) Qualified Code(s): N18.32 - Chronic kidney disease, stage 3b Plan: Continue to follow with Nephrology and avoid kidney irritants such as NSAIDs and stay well hydrated. (5) Hypercholesterolemia: Code(s): E78.00 - Pure hypercholesterolemia, unspecified Category: Medical Plan: Avoid foods that are high in cholesterol such as red meat, fried foods, eggs and baked goods. Triglyceride goal of less than 150 and LDL goal of less than 70. Continue on rosuvastatin. (6) Hypertension: Code(s): I10 - Essential (primary) hypertension Category: Medical Qualifiers: Hypertension type: essential hypertension Qualified Code(s): I10 - Essential (primary) hypertension Plan: Continue on current blood pressure medication. Avoid salt intake and encourage healthy diet and regular exercise. Blood pressure elevated the last 2 office visits even when retaken. Patient does not take blood pressure at home. And discussion with Dr. Castano we will add carvedilol 3.125 mg b.i.d. to the regimen for better blood pressure control. Plan This note was constructed using voice recognition software. While every effort has been made to ensure accuracy and can filling room sweeper, still areas may have been included sometimes these areas may affect the content or meeting of the given symptoms. Total time spent caring for the patient today was 20 minutes. This includes time spent before the visit reviewing the chart, time spent during the visit, and time spent after the visit and documentation. Orders: Orders B Type Natriuretic Peptide Today I25.10 - Atherosclerotic heart disease of [place] coronary artery without angina pectoris Medications: New carvedilol must administer with a meal/food 3.125 mg PO BID 60 tabs 2RF
[2024-07-01 09:47] VITALS: BP 174/68; PULSE 52; O2SAT 99; BMI 24.1
[2024-07-01 10:31] VITALS: BP 162/70
== END 2024-07-01 10:36 | disposition home or self-care (01) ==
PROVIDERS: PCP Internal Medicine
DX: H61.23 Impacted cerumen, bilateral (principal); T82.857A Stenosis of other cardiac prosthetic devices, implants and grafts, initial encounter; I25.10 Atherosclerotic heart disease of native coronary artery without angina pectoris; N18.32 Chronic kidney disease, stage 3b; E78.00 Pure hypercholesterolemia, unspecified; I10 Essential (primary) hypertension

== ENCOUNTER → 2024-07-01 09:45 | Outpatient (BNVA) | payer MEDICARE, OTHER, SELFPAY | PROVIDERS: PCP Internal Medicine | DX: H61.23 Impacted cerumen, bilateral (principal); T82.857A Stenosis of other cardiac prosthetic devices, implants and grafts, initial encounter; I25.10 Atherosclerotic heart disease of native coronary artery without angina pectoris; E78.00 Pure hypercholesterolemia, unspecified; I12.9 Hypertensive chronic kidney disease with stage 1 through stage 4 chronic kidney disease, or unspecified chronic kidney disease; N18.32 Chronic kidney disease, stage 3b | CPT/HCPCS: 99212 ==

== ENCOUNTER 2024-10-18 09:54 | Outpatient (AMB) | payer MEDICARE, OTHER, SELFPAY ==
[2024-10-18 09:58] VITALS: BP 132/80; PULSE 79; O2SAT 98; BMI 23.4
--- NOTE | 2024-10-18 09:58 | A.OFFPC_ITS ---
Vital Signs 10/18/24 09:58 Height 5 ft 7 in Weight 149 lb 8 oz BMI 23.4 BP 132/80 Blood Pressure Location Lt brachial Position Sitting Pulse 79 Pulse Source Pulse Oximeter Pulse Oximetry (%) 98 Oxygen Delivery Method Room Air Intake Visit Reasons: 3 month f/u Outreach Associate Required: No Accompanied by: Self / Same As Patient Allergies No Known Allergies Allergy (Verified 10/18/24 10:00) Medication List - Last Reviewed 10/18/24 by MANGO Crowley amlodipine 10 mg PO DAILY amoxicillin 2,000 mg orally 1 hour from the procedure; aspirin (Adult Low Dose Aspirin) 81 mg PO DAILY finasteride 5 mg PO DAILY 90 days furosemide 20 mg PO DAILY lisinopril 10 mg PO DAILY 90 days magnesium 250 mg PO DAILY omeprazole 20 mg PO DAILY rosuvastatin 40 mg PO DAILY tamsulosin 0.4 mg PO BEDTIME 90 days Tobacco use date assessed: 10/18/24 Fall risk assessment: No Falls in past year Last assessed Fall Risk: 10/18/24 Dental Screening Dental Screen Date: 10/18/24 Did you have a dental visit in the last 12 months?: Yes Did you have a dental problem in the last 6 months where you did not have access to dental care?: No Was dental information given to patient?: Patient has dentist HPI 3 month f/u HPI Details 89-year-old male with past medical histo ry of 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 In review of the notes, patient was seen by his bobtailer 08/21/2024 improvement in renal function after discontinuation of Lasix with plan to repeat labs in 2 weeks and initiation with lower dose of Lasix plan to follow up with Nephrology. Presenting with arthritis and heart failure management concerns. The arthritis symptoms emerged acutely in July, causing significant joint pain, notably in shoulders and hands, affecting his ability to perform daily tasks. Inflamed symptoms are more pronounced at night. He has been using furosemide for heart failure to mitigate fluid retention but experiences exacerbated symptoms while traveling. Blood pressure levels, previously unstable, have improved recently. The patient had a dermatological assessment for basal cell carcinoma, where a conservative management plan was adopted due to surgical risks. He also experiences dry mouth and eyes, likely secondary to his heart medication. [facility] Medical History BPH (benign prostatic hyperplasia) GERD (gastroesophageal reflux disease) Chronic kidney disease Hypercholesterolemia Hypertension Surgical History H/O aortic valve replacement History of surgery S/P tonsillectomy Anal fistula Hx of inguinal hernia surgery Social History Housing: House Alcohol intake: current Alcohol intake frequency: 0-2 drinks per day Patient Tobacco Use Status: Former Tobacco user Tobacco use type: Cigarette e-Cigarette/Vaping Use: Never Used Second Hand Smoke Exposure: No service: No Current occupational status: retired Current occupational exposures/hazards: No Cognitive needs: No Hearing needs: Yes Vision needs: Yes Questionnaire PHQ-9 Over the last 2 weeks, how often have you been bothered by any of the following problems? 1. Little interest or pleasure in doing things: not at all 2. Feeling down, depressed, or hopeless: not at all 3. Trouble falling or staying asleep, or sleeping too much: not at all 4. Feeling tired or having little energy: not at all 5. Poor appetite or overeating: not at all 6. Feeling bad about yourself - or that you are a failure or have let yourself or your family down: not at all 7. Trouble concentrating on things, such as reading the newspaper or watching television: not at all 8. Moving or speaking so slowly that other people could have noticed. Or the opposite - being so fidgety or restless that you have been moving around a lot more than usual: not at all 9. Thoughts that you would be better off or of hurting yourself in some way: not at all Total score: 0 Depression Screening Interpretation: Negative Depression Screening Done: Yes Source: Developed by Drs. Giuliano Davalos, Celia Wilson, José Manuel Mckenzie and colleagues, with an educational nel from [employer]. Thrive Questionnaire Date Thrive assessed: 10/18/24 I am a: Patient What is your living situation today?: I have a steady place to live Within the past 12 months, did the food you bought not last and you didn't have the money to get more?: Never true Within the past 12 months, did you worry whether your food would run out before you got money to buy more?: Never true Do you have trouble paying for medicines?: No Do you have trouble getting transportation to medical appointments?: No Do you have trouble paying your heating and electricity bill?: No Do you have trouble taking care of your child, family member or friend?: No Do you have trouble with day-to-day activities such as bathing, preparing meals, shopping, managing finances, etc.?: No Are you currently unemployed and looking for a job?: No Are you interested in more education?: No Please select the resources that you would like help with: None Currently or been in a relationship where the following occur: No concerns reported THRIVE Score: 0 AUDIT C Alcohol Use Questionnaire (AUDIT-C) 1. How often do you have a drink containing alcohol?: Monthly or less 2. How many drinks containing alcohol do you have on a typical day when you are drinking?: 1 or 2 3. How often do you have six or more drinks on one occasion?: Never Total Score: 1 BARI-7 AMB Questionnaire BARI-7 Date BARI - 7 assessed: 10/18/24 Feeling nervous, anxious, or on edge: 0 = Not at all Not being able to stop or control worryin = Not at all Worrying too much about different things: 0 = Not at all Trouble relaxin = Not at all Being so restless that it is hard to sit still: 0 = Not at all Becoming easily annoyed or irritable: 0 = Not at all Feeling afraid as if something awful might happen: 0 = Not at all Total BARI-7 score (0-4 normal; 5-9 mild; 10-14 moderate; 15-21 severe): 0 Source: Developed by Drs. Giuliano Davalos, Celia Wilson, José Manuel Mckenzie and colleagues, with an educational nel from [employer]. Review of Systems Const Denies body aches, Denies chills, Denies fever(s), Denies headache(s) and Denies poor appetite Eyes Reports no additional complaints ENT Denies dysphagia, Denies dizziness, Denies headache(s) and Denies odynophagia Card Denies chest pain, Denies syncope, Denies edema, Denies irregular heart rhythm, Denies lightheadedness and Denies dyspnea Resp Denies cough and Denies dyspnea GI Denies abdominal pain, Denies constipation, Denies dysphagia, Denies diarrhea, Denies nausea, Denies odynophagia and Denies vomiting Reports no additional complaints Musc Details: Bilateral hand and shoulder pain Reports no additional complaints and Denies abnormal gait Skin/Breast Reports system reviewed and no additional complaints, except as documented Neuro Denies abnormal gait, Denies dizziness, Denies syncope and Denies headache(s) Psych Reports no additional complaints Physical exam (Primary Care) Vital Signs: Oxygen Delivery Method Room Air 10/18/24 09:58 Tobacco/Smoking Status: Tobacco use Status Tobacco use date assessed 04/01/24 07/01/24 09:52 Patient Tobacco Use Status Former Tobacco user 07/01/24 09:52 Tobacco use type Cigarette 07/01/24 09:52 e-Cigarette/Vaping Use Never Used 07/01/24 09:52 Depression Screening Interpretation: Negative Thrive Assessment: Date of Thrive Assessment Date Thrive assessed 04/01/24 07/01/24 09:52 Currently or been in a relationship where the following occur: No concerns reported Const General: cooperative, healthy appearing, comfortable and no acute distress Orientation/consciousness: patient oriented x3 HENMT Head: Yes normocephalic Ears: hearing grossly normal bilaterally General nose exam: Normal external nose present Eyes General: appearance normal, both eyes and all related structures Conjunctivae: conjunctivae normal Neck Neck: Yes full ROM and Yes no lymphadenopathy Resp Effort & Inspection: normal respiratory effort Auscultation: clear to auscultation bilaterally, no crackles, no rales, no rhonchi and no wheezes Cardio Rate: regular rate Rhythm: regular rhythm Skin General skin exam: no rashes or lesions noted Neuro General: patient oriented x3 Gait exam (Neuro): Normal gait present Extrem Other: No tenderness to palpation or swelling of bilateral hands without overlying skin changes. Intact pulses and sensation. 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 Recently had echocardiogram completed we will request these results from [facility]. (2) CAD (coronary artery disease): Comment: CABG x 3 2012 [facility] Brian White Code(s): I25.10 - Atherosclerotic heart disease of [place] coronary artery without angina pectoris Category: Medical Plan: Advised good control of blood pressure, cholesterol and blood sugars. Requested last lab results (3) Chronic kidney disease: Comment: nephrology Code(s): N18.9 - Chronic kidney disease, unspecified Category: Medical Qualifiers: Chronic kidney disease stage: stage 3 (moderate) Chronic kidney disease stage 3 subtype: stage 3b (GFR 30-44) Qualified Code(s): N18.32 - Chronic kidney disease, stage 3b Plan: Continue to follow with Nephrology and avoid kidney irritants such as NSAIDs and stay well hydrated. (4) Hypercholesterolemia: Code(s): E78.00 - Pure hypercholesterolemia, unspecified Category: Medical Plan: Avoid foods that are high in cholesterol such as red meat, fried foods, eggs and baked goods. Triglyceride goal of less than 150 and LDL goal of less than 70. Continue on rosuvastatin. (5) Hypertension: Code(s): I10 - Essential (primary) hypertension Category: Medical Qualifiers: Hypertension type: essential hypertension Qualified Code(s): I10 - Essential (primary) hypertension Plan: Continue on current blood pressure medication. Avoid salt intake and encourage healthy diet and regular exercise. At his last visit carvedilol was added to his medication regimen however he has not been taking it. He has seen an improvement in his blood pressures at home and blood pressure was within normal limits today even when retaken. Advised patient to continue to monitor blood pressure and follow up with Nephrology in November (6) Joint pain: Comment: bilateral hand pain Code(s): M25.50 - Pain in unspecified joint Category: Medical Plan: In terms of arthritis, further diagnostic measures include x-rays and potential additional blood investigations to exclude rheumatoid arthritis. Meanwhile, topical treatments are suggested for symptomatic relief of joint pain. (7) Diastolic heart failure: Comment: [place] [facility] [facility] Code(s): I50.30 - Unspecified diastolic (congestive) heart failure Category: Medical Plan: The patient will maintain his current regimen of furosemide for heart failure management, with a follow-up nephrology consultation to reassess long-term use. No symptoms of heart failure and no signs of fluid overload on exam. Plan This note was constructed using voice recognition software. While every effort has been made to ensure accuracy and entry level accountant, still areas may have been included sometimes these areas may affect the content or meeting of the given symptoms. Total time spent caring for the patient today was 20 minutes. This includes time spent before the visit reviewing the chart, time spent during the visit, and time spent after the visit and documentation. Patient was informed and verbally consented to the use of an ambient scribe for clinic note docume ntation during this visit. Orders: Orders XR Hand Bilat min 3v Today M25.50 - Pain in unspecified joint Rheumatoid Factor Today M25.50 - Pain in unspecified joint Erythrocyte Sedimentation Rate Today M25.50 - Pain in unspecified joint C Reactive Protein Today M25.50 - Pain in unspecified joint
--- OUTSIDE RECORDS SUMMARY | 2024-10-18 10:51 | XMS_ITS | Clinical Summary ---
Author Organization [address] [place] [address] [place] [phone] Phone Care Team Providers Care Stockfeed Miller Name Role Phone Leana Savage PT Primary Care Provid er Allergies No known active allergies Medications amLODIPine (NORVASC) 10 mg tablet Take 1 tablet (10 mg total) by mouth 1 (one) time each day. 06/24/2024 Active carvediloL (COREG) 3.125 mg tablet TAKE 1 TABLET BY MOUTH TWICE A DAY WITH A MEAL/FOOD 07/01/2024 Active lisinopriL (PRINIVIL,ZESTR IL) 10 mg tablet TAKE 1 TABLET ORALLY DAILY FOR 90 DAYS 06/03/2024 Active omeprazole (PriLOSEC) [address] capsule Take 1 capsule (20 mg total) by mouth 1 (one) time each day. 05/02/2024 Active rosuvastatin (CRESTOR) 40 mg tablet Take 1 tablet (40 mg total) by mouth 1 (one) time each day. 04/23/2024 Active tamsulosin (FLOMAX) 0.4 mg 24 hr capsule Take 1 capsule (0.4 mg total) by mouth. at bedtime 04/11/2024 Active Social History Tobacco Use Types Packs/Day Years Used Date Smoking Tobacco: Never Assessed Sex and Gender Information Value Date Recorded Sex Assigned at Not on file Legal Sex Male 2:47 AM EST Gender Identity Not on file Sexual Orientation Not on file Last Filed Vital Signs Vital Sign Reading Time Taken Comments Blood Pressure 143/60 07/06/2024 2:10 PM EST Pulse 42 07/06/2024 2:10 PM EST Temperature 36.5 ??C (97.7 ??F) 07/06/2024 2:10 PM ES T Respiratory Rate - - Oxygen Saturation 97% 07/06/2024 2:10 PM EST Inhaled Oxygen Concentration - - Weight - - Height - - Body Mass Index - - Plan of Treatment Health Maintenance Due Date Last Done Comments DTaP,Tdap,and Td Vaccines (1 - Tdap) 1954 RSV Immunization Patients 60+ Years Old (1 - 1-dose 75+ series) 2010 Zoster Vaccines (2 of 3) 07/02/2013 05/07/2013 Pneumococcal Vaccine: 50+ Years (2 of 2 - PCV) 02/12/2014 02/12/2013 Cholesterol Screening (Lipid Panel) 07/14/2022 Depression Screening 07/14/2022 Falls Risk Assessment 07/14/2022 Medicare Annual Wellness Visit 07/14/2022 Social Influencers of Health Screening 07/14/2022 Hypertension/CHF/CAD Annual BMP Blood Test 07/06/2024 COVID-19 Vaccine Completed 06/07/2024, 07/2022, 07/23/2021 Influenza Vaccine Completed 06/07/2024, , 04/22/2022, Additional history exists HIB Vaccines Aged Out No longer eligi ble based on patient's age to complete this topic HPV Vaccines Aged Out No longer eligi ble based on patient's age to complete this topic Hepatitis A Vaccines Aged Out No long er eligible based on patient's age to complete this topic Hepatitis B Vaccines Aged Out No long er eligible based on patient's age to complete this topic IPV Vaccines Aged Out No longer eligi ble based on patient's age to complete this topic MMR Vaccines Aged Out No longer eligi ble based on patient's age to complete this topic Meningococcal ACWY Vaccine Aged Out N o longer eligible based on patient's age to complete this topic Meningococcal B Vacine Aged Out No lo nger eligible based on patient's age to complete this topic RSV Immunization Patients Under 20 months Aged Out No longer eligible based on patient's age to complete this topic Varicella Vaccines Aged Out No longer eligible based on patient's age to complete this topic Insurance [facility] [place] [address] MEDICARE UNICARE Care Teams Stockfeed Miller Relationship Specialty Start Date End Date Leana Savage, PT [address] [place] [phone] PCP - General Physical Therapy 02/20/21
== END 2024-10-18 10:37 | disposition home or self-care (01) ==
PROVIDERS: PCP Internal Medicine
DX: I12.9 Hypertensive chronic kidney disease with stage 1 through stage 4 chronic kidney disease, or unspecified chronic kidney disease (principal); N18.32 Chronic kidney disease, stage 3b; I50.30 Unspecified diastolic (congestive) heart failure; T82.857A Stenosis of other cardiac prosthetic devices, implants and grafts, initial encounter; I25.10 Atherosclerotic heart disease of native coronary artery without angina pectoris; E78.00 Pure hypercholesterolemia, unspecified; M25.50 Pain in unspecified joint

== ENCOUNTER 2024-10-18 09:54 | Outpatient (REF) | payer MEDICARE, OTHER, SELFPAY ==
--- NOTE | ~2024-10-18 | XR_ITS ---
EXAMINATION: XR HAND/WRIST, RIGHT XR HAND/WRIST, LEFT CLINICAL INFORMATION: M25.50 - Pain in unspecified joint ; bilateral hand pain x4 months. No injury. COMPARISON: 12/29/2015. TECHNIQUE: PA, lateral, and [place] views of the each hand and wrist. FINDINGS: RIGHT HAND/WRIST: No fracture, dislocation, or suspicious bone lesion. Normal bone mineralization. No gross periarticular osteopenia. Mild radiocarpal joint space narrowing, mild degenerative arthritis in the first CMC joint, and mild degenerative arthritis in the first MCP. MCPs appear preserved without definite erosions. Mild to moderate diffuse DIP joint arthritis, likely degenerative, without definite PIP joint involvement. Mild arthritis in the interphalangeal joint of the thumb. No chondrocalcinosis. Vascular calcifications throughout the soft tissues. LEFT HAND/WRIST: No fracture, dislocation, or suspicious bone lesion. Normal bone mineralization. No gross periarticular osteopenia. Mild radiocarpal joint space narrowing, mild degenerative arthritis in the first CMC joint, and mild degenerative arthritis in the first MCP. MCPs appear preserved without definite erosions. Mild to moderate diffuse DIP joint arthritis, likely degenerative, without definite PIP joint involvement. Mild arthritis in the interphalangeal joint of the thumb. No chondrocalcinosis. Vascular calcifications throughout the soft tissues. XR/XR Hand Bilat min 3v IMPRESSION: 1. Degenerative arthritis as detailed, symmetric in both hands/wrists, predominantly involving the DIP joints, first MCP joint, and first CMC joints. 2. No definite erosive arthropathy identified. Electronically signed by: Stanley De León MD 10/19/2024 09:40 AM EDT
--- OUTSIDE RECORDS SUMMARY | 2024-10-18 12:12 | XMS_ITS | Clinical Summary ---
Author Organization [address] [place] [address] [place] [phone] Phone Care Team Providers Care Phototypesetter Operator Name Role Phone Leana Savage PT Primary [...] patient's age to complete this topic Insurance [facility] [place] [id number] MEDICARE UNICARE Care Teams Phototypesetter Operator Relationship Specialty Start Date End Date Leana Savage, PT [address] [place] [phone] PCP - General Physical Therapy 02/20/21
[2024-10-18 12:21] LABS: Erythrocyte Sedimentation Rate 16 MM/HR (0-15)
[2024-10-18 12:42] LABS: B Type Natriuretic Peptide 199 pg/mL (<100)
[2024-10-18 12:43] LABS: Rheumatoid Factor < 13.0 IU/mL (<15.0)
[2024-10-18 12:53] LABS: C Reactive Protein < 0.10 mg/dL (< or = 0.50)
== END 2024-10-18 09:55 | disposition home or self-care (01) ==
LOC: HO.XRAY 09:54
PROVIDERS: PCP Internal Medicine
DX: I25.10 Atherosclerotic heart disease of native coronary artery without angina pectoris (principal); M25.50 Pain in unspecified joint; I13.0 Hypertensive heart and chronic kidney disease with heart failure and stage 1 through stage 4 chronic kidney disease, or unspecified chronic kidney disease; N18.32 Chronic kidney disease, stage 3b; I50.30 Unspecified diastolic (congestive) heart failure; E78.00 Pure hypercholesterolemia, unspecified; T82.857D Stenosis of other cardiac prosthetic devices, implants and grafts, subsequent encounter
CPT/HCPCS: 36415; 73130; 83880; 85652; 86140; 86431; 99212

== ENCOUNTER → 2024-10-18 11:04 | Outpatient (BNV) | payer MEDICARE, OTHER, SELFPAY | PROVIDERS: PCP Internal Medicine; Visit Provider Radiology Diagnostic Radiology | DX: M79.641 Pain in right hand (principal); M79.642 Pain in left hand | CPT/HCPCS: 73110; 73130 ==

== ENCOUNTER 2024-12-29 11:18 | Outpatient (AMB) | payer MEDICARE, OTHER, SELFPAY ==
[2024-12-29 11:24] VITALS: BP 158/70; PULSE 44; O2SAT 97; BMI 24.0
--- NOTE | 2024-12-29 11:24 | A.OFFPC_ITS ---
Vital Signs 12/29/24 11:24 Height 5 ft 7 in Weight 153 lb BMI 24.0 BP 158/70 H Blood Pressure Location Lt brachial Position Sitting Pulse 44 L Pulse Source Pulse Oximeter Pulse Oximetry (%) 97 Oxygen Delivery Method Room Air Intake Visit Reasons: f/u HTN Allergies No Known Allergies Allergy (Verified 12/29/24 11:24) Medication List - Last Reconciled 12/29/24 by Brissa Castano MD amlodipine 10 mg PO DAILY amoxicillin 2,000 mg orally 1 hour from the procedure; aspirin (Adult Low Dose Aspirin) 81 mg PO DAILY finasteride 5 mg PO DAILY 90 days furosemide 20 mg PO DAILY lisinopril 10 mg PO DAILY 90 days magnesium 250 mg PO DAILY omeprazole 20 mg PO DAILY rosuvastatin 40 mg PO DAILY tamsulosin 0.4 mg PO BEDTIME 90 days Tobacco use date assessed: 10/18/24 Fall risk assessment: No Falls in past year Last assessed Fall Risk: 12/29/24 Dental Screening Dental Screen Date: 12/29/24 Did you have a dental visit in the last 12 months?: Yes Did you have a dental problem in the last 6 months where you did not have access to dental care?: No Was dental information given to patient?: Patient has dentist [facility] Medical History BPH (benign prostatic hyperplasia) GERD (gastroesophageal reflux disease) Chronic kidney disease Hypercholesterolemia Hypertension Surgical History H/O aortic valve replacement History of surgery S/P tonsillectomy Anal fistula Hx of inguinal hernia surgery Social History Housing: House Alcohol intake: current Alcohol intake frequency: 0-2 drinks per day Patient Tobacco Use Status: Former Tobacco user Tobacco use type: Cigarette e-Cigarette/Vaping Use: Never Used Second Hand Smoke Exposure: No service: No Current occupational status: retired Current occupational exposures/hazards: No Cognitive needs: No Hearing needs: Yes Vision needs: Yes Questionnaire PHQ-9 Over the last 2 weeks, how often have you been bothered by any of the following problems? 1. Little interest or pleasure in doing things: not at all 2. Feeling down, depressed, or hopeless: not at all 3. Trouble falling or staying asleep, or sleeping too much: not at all 4. Feeling tired or having little energy: not at all 5. Poor appetite or overeating: not at all 6. Feeling bad about yourself - or that you are a failure or have let yourself or your family down: not at all 7. Trouble concentrating on things, such as reading the newspaper or watching television: not at all 8. Moving or speaking so slowly that other people could have noticed. Or the opposite - being so fidgety or restless that you have been moving around a lot more than usual: not at all 9. Thoughts that you would be better off or of hurting yourself in some way: not at all Total score: 0 Depression Screening Interpretation: Negative Depression Screening Done: Yes Source: Developed by Drs. Giuliano Davalos, Celia Wilson, José Manuel Mckenzie and colleagues, with an educational nel from [id number]. Thrive Questionnaire Date Thrive assessed: 12/23/24 I am a: Patient What is your living situation today?: I have a steady place to live Within the past 12 months, did the food you bought not last and you didn't have the money to get more?: Never true Within the past 12 months, did you worry whether your food would run out before you got money to buy more?: Never true Do you have trouble paying for medicines?: No Do you have trouble getting transportation to medical appointments?: No Do you have trouble paying your heating and electricity bill?: No Do you have trouble taking care of your child, family member or friend?: No Do you have trouble with day-to-day activities such as bathing, preparing meals, shopping, managing finances, etc.?: No Are you currently unemployed and looking for a job?: No Are you interested in more education?: No Please select the resources that you would like help with: None Currently or been in a relationship where the following occur: No concerns reported THRIVE Score: 0 AUDIT C Alcohol Use Questionnaire (AUDIT-C) 1. How often do you have a drink containing alcohol?: 2-3 times a week 2. How many drinks containing alcohol do you have on a typical day when you are drinking?: 1 or 2 3. How often do you have six or more drinks on one occasion?: Weekly Total Score: 6 BARI-7 AMB Questionnaire BARI-7 Date BARI - 7 assessed: 12/29/24 Feeling nervous, anxious, or on edge: 0 = Not at all Not being able to stop or control worryin = Not at all Worrying too much about different things: 0 = Not at all Trouble relaxin = Not at all Being so restless that it is hard to sit still: 0 = Not at all Becoming easily annoyed or irritable: 0 = Not at all Feeling afraid as if something awful might happen: 0 = Not at all Total BARI-7 score (0-4 normal; 5-9 mild; 10-14 moderate; 15-21 severe): 0 Source: Developed by Drs. Giuliano Davalos, Celia Wilson, José Manuel Mckenzie and colleagues, with an educational nel from [id number]. Physical exam (Primary Care) Vital Signs: Last Vital Signs Pulse 44 L 12/29/24 11:24 BP 158/70 H 12/29/24 11:24 Pulse Ox 97 12/29/24 11:24 Oxygen Delivery Method Room Air 12/29/24 11:24 BMI result Body Mass Index 24.0 Tobacco/Smoking Status: Tobacco use Status Tobacco use date assessed 10/18/24 12/29/24 11:29 Patient Tobacco Use Status Former Tobacco user 12/29/24 11:29 Tobacco use type Cigarette 12/29/24 11:29 e-Cigarette/Vaping Use Never Used 12/29/24 11:29 PHQ-9: PHQ-9 Score PHQ-9: Total score 0 12/29/24 11:48 Depression Screening Interpretation: Negative Thrive Assessment: Date of Thrive Assessment Date Thrive assessed 12/23/24 12/29/24 11:29 Currently or been in a relationship where the following occur: No concerns reported Const General: alert; No acute distress Eyes Conjunctivae: conjunctivae normal Resp Auscultation: clear to auscultation bilaterally Cardio Rate: regular rate Rhythm: regular rhythm GI Inspection: Yes normal to inspection Extrem General: Yes normal to inspection and No edema Coding Level of Care Code Est Pt Level 4 (66774) Complex EM visit Add On G2211 Diagnoses Diastolic heart failure I50.30 Anemia D64.9 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 Cardiology Code(s): I50.30 - Unspecified diastolic (congestive) heart failure Category: Medical Plan: Patient has been seen by Cardiology earlier this year and has advised to get back with the furosemide. Advised to get blood work done. (2) Anemia: Code(s): D64.9 - Anemia, unspecified Category: Medical Plan: Chronic and stable continue to monitor (3) Prosthetic aortic valve stenosis: Comment: January 2022, May 2023, July 2023 1.2 Code(s): T82.857A - Stenosis of other cardiac prosthetic devices, implants and grafts, initial encounter Category: Medical Plan: Continue to follow up with Cardiology this is being monitored with echocardiogram (4) CAD (coronary artery disease): Comment: CABG x 3 2012 [facility] White Code(s): I25.10 - Atherosclerotic heart disease of [place] coronary artery without angina pectoris Category: Medical Plan: Control the cholesterol, weight, blood pressure, on aspirin (5) Chronic kidney disease: Comment: nephrology Code(s): N18.9 - Chronic kidney disease, unspecified Category: Medical Qualifiers: Chronic kidney disease stage: stage 3 (moderate) Chronic kidney disease stage 3 subtype: stage 3b (GFR 30-44) Qualified Code(s): N18.32 - Chronic kidney disease, stage 3b Plan: Continue to monitor. Keep well hydrated and avoid NSAIDs. (6) Hypertension: Code(s): I10 - Essential (primary) hypertension Category: Medical Qualifiers: Hypertension type: essential hypertension Qualified Code(s): I10 - Essential (primary) hypertension Plan: Continue with blood pressure medication. Decrease salt intake and exercise takes lisinopril 10 mg once a day and amlodipine 10 mg once a day (7) Hypercholesterolemia: Code(s): E78.00 - Pure hypercholesterolemia, unspecified Category: Medical Plan: Avoid fried foods, chicken skin, eggs, butter margarine, pastries and meat. Be it pork or beef they have a lot of cholesterol LDL goal of less than 70 and triglyceride of less than 150. Patient needs blood work (8) BPH (benign prostatic hyperplasia): Code(s): N40.0 - Benign prostatic hyperplasia without lower urinary tract symptoms Category: Medical Plan: Continue to follow-up with urology on finasteride tamsulosin (9) Bradycardia: Code(s): R00.1 - Bradycardia, unspecified Category: Medical Plan: Discussed with the patient regarding the low energy as the bradycardia can cause this. Patient will be seeing Cardiology. Plan History of Present Illness The patient is an 89-year-old male presenting for follow-up of his chronic health issues, including cardiovascular and dermatological conditions. He has a history of severe aortic stenosis managed with a prosthetic valve since July 2023, and he is managing diastolic heart failure alongside chronic kidney disease. His hypertension and hypercholesterolemia are actively monitored, with pharmacologic interventions including lisinopril and modifications to his diuretic regimen due to acute kidney injury. 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 Degenerative arthritis of both hands was identified on recent imaging in October. Ongoing blood work monitoring is crucial due to anemia of chronic disease and kidney function status. Health Maintenance - Monitor blood pressure and lipid profiles to maintain LDL <70 mg/dL and tr iglycerides <150 mg/dL. - Routine follow-up with urology management for benign prostatic hyperplasia. - Continual hydration management and avoidance of NSAIDs for kidney protection. - Periodic dermatological exams for skin lesion monitoring and management. - Cardiovascular monitoring through echocardiograms. Social History - No specific social determinants of health were discussed during the con versation relevant to this visit. Review of Systems - Cardiovascular: Denies angina - Renal: No specific reports of symptoms - Musculoskeletal: Reports degenerative arthritis of both hands Physical Exam Results - Labs: Blood work from June 2024 indicated anemia of chronic disease. - Imaging: Hand X-ray in October 2024 indicated degenerative arthritis in both hands. Plan The patient's chronic condition management involves ongoing cardiovascular monitoring with planned echocardiograms, diuretic adjustments to prevent exacerbation of acute kidney injury, and coordination with nephrology for kidney disease stability. Hypertension control will be targeted with lisinopril 10 mg daily, and lipid management will aim for LDL <70 mg/dL and triglycerides <150 mg/dL. Dermatological evaluations will be maintained due to his history of keratoses and previous malignancies. Degenerative arthritis management will focus on maintaining mobility and function. Hydration and NSAID avoidance contin ue to be emphasized for renal health. Patient was informed and verbally consented to the use of an ambient scribe for clinic note documentation during this visit. Discussion Notes I discussed with the patient our planned management for his chronic conditions. We agreed to continue cardiovascular assessment with echocardiograms and explore nephrology consultation to address his renal function concerns. Adjustments to furosemide have been made to prevent further renal compromise. I explained the importance of maintaining target blood pressure and cholesterol levels, and we reviewed the need to continue lisinopril and adjust other medications as necessary. We also discussed the significance of regular dermatological follow- ups due to his history of skin cancer and current keratoses. Patient Instructions - Continue taking lisinopril 10 mg once daily. - Stay hydrated and avoid NSAIDs. - Attend dermatology follow-ups as scheduled. - Follow instructions from nephrology consultation. - Monitor blood pressure and report any angina or heart-related symptoms. - Have routine lab work and echocardiograms as scheduled. Orders: Orders B Type Natriuretic Peptide Today I50.30 - Unspecified diastolic (congestive) heart failure Medications: Refilled tamsulosin 0.4 mg PO BEDTIME 90 caps 3RF 90 days R35.1 - Nocturia amlodipine 10 mg PO DAILY 90 tabs 3RF I50.30 - Unspecified diastolic (congestive) heart failure omeprazole 20 mg PO DAILY 90 caps 3RF I50.30 - Unspecified diastolic (congestive) heart failure rosuvastatin 40 mg PO DAILY 90 tabs 3RF E78.00 - Pure hypercholesterolemia, unspecified lisinopril 10 mg PO DAILY 90 tabs 3RF 90 days I10 - Essential (primary) hyperte nsion finasteride 5 mg PO DAILY 90 tabs 3RF 90 days C61 - Malignant neoplasm of prostate, N40.0 - Benign prostatic hyperplasia without lower urinary tract symptoms
--- OUTSIDE RECORDS SUMMARY | 2024-12-29 12:35 | XMS_ITS | Clinical Summary ---
Author Organization [address] [place] [address] [place] [phone] Phone Care Team Providers Care Trimming Operator Name Role Phone Leana Savage PT [...] Vaccines (1 - Tdap) 1954 RSV Immunization Adult Patients (1 - 1-dose 75+ series) 2010 Zoster Vaccines (2 of 3) 07/02/2013 05/07/2013 Pneumococcal Vaccine: 50+ Years (2 of 2 - PCV) 02/12/2014 02/12/2013 Cholesterol Screening (Lipid Panel) 07/14/2022 Depression Screening 07/14/2022 Falls Risk Assessment 07/14/2022 Medicare Annual Wellness Visit 07/14/2022 Social Influencers of Health Screening 07/14/2022 Hypertension/CHF/CAD Annual BMP Blood Test 07/06/2024 COVID-19 Vaccine ( season) 2024 06/07/2024, 04/22/2022, 07/23/2021 Influenza Vaccine Completed 06/07/2024, , 04/22/2022, [...] age to complete this topic Meningococcal B Vaccine Aged Out No l onger eligible based on patient's age to complete this topic RSV Immunization Patients Under 20 months Aged Out No longer eligible based on patient's age to complete this topic Varicella Vaccines Aged Out No longer eligible based on patient's age to complete this topic Insurance MEDICARE [facility] Care Teams Trimming Operator Relationship Specialty Start Date End Date Leana Savage, GRETA [address] [place] [phone] PCP - General Physical Therapy 02/20/21
== END 2024-12-29 12:07 | disposition home or self-care (01) ==
LOC: HO.HMCH 11:19
PROVIDERS: PCP Internal Medicine; Visit Provider Internal Medicine
DX: I13.0 Hypertensive heart and chronic kidney disease with heart failure and stage 1 through stage 4 chronic kidney disease, or unspecified chronic kidney disease (principal); I50.30 Unspecified diastolic (congestive) heart failure; N18.32 Chronic kidney disease, stage 3b; D64.9 Anemia, unspecified; T82.857A Stenosis of other cardiac prosthetic devices, implants and grafts, initial encounter; I25.10 Atherosclerotic heart disease of native coronary artery without angina pectoris; E78.00 Pure hypercholesterolemia, unspecified; N40.0 Benign prostatic hyperplasia without lower urinary tract symptoms; R00.1 Bradycardia, unspecified

== ENCOUNTER → 2024-12-29 11:18 | Outpatient (BNVA) | payer MEDICARE, OTHER, SELFPAY | PROVIDERS: PCP Internal Medicine; Visit Provider Internal Medicine | DX: I13.0 Hypertensive heart and chronic kidney disease with heart failure and stage 1 through stage 4 chronic kidney disease, or unspecified chronic kidney disease (principal); N18.32 Chronic kidney disease, stage 3b; I50.30 Unspecified diastolic (congestive) heart failure; D64.9 Anemia, unspecified; T82.857D Stenosis of other cardiac prosthetic devices, implants and grafts, subsequent encounter; I25.10 Atherosclerotic heart disease of native coronary artery without angina pectoris; E78.00 Pure hypercholesterolemia, unspecified; N40.0 Benign prostatic hyperplasia without lower urinary tract symptoms; R00.1 Bradycardia, unspecified | CPT/HCPCS: 99212 ==

== ENCOUNTER 2025-04-15 15:21 | Outpatient (AMB) | payer MEDICARE, OTHER, SELFPAY ==
--- OUTSIDE RECORDS SUMMARY | 2025-04-15 15:30 | XMS_ITS | Clinical Summary ---
Author Organization [address] [place] [address] [place] [phone] Phone Care Team Providers Care Shipping And Receiving Assistant Name Role Phone Leana Savage PT Primary [...] 42 07/06/2024 2:10 PM EST Temperature 36.5 C (97.7 F) 07/06/2024 2:10 PM EST Respiratory Rate - - Oxygen Saturation 97% [...] 02/12/2014 02/12/2013 Cholesterol Screening (Lipid Panel) 07/14/2022 Falls Risk Assessment 07/14/2022 Medicare Annual Wellness Visit 07/14/2022 Social Influencers of Health Screening 07/14/2022 Hypertension/CHF/CAD Annual BMP Blood Test 07/06/2024 Depression Screening 08/11/2024 COVID-19 Vaccine ( season) 2025 06/07/2024, 04/22/2022, 07/23/2021 Influenza Vaccine (#1) 2025 , 06/04/2023, 04/22/2022, Additional history exists HIB Vaccines Aged [...] age to complete this topic Insurance MEDICARE [facility] Care Teams Shipping And Receiving Assistant Relationship Specialty Start Date End Date Leana Savage, PT [address] [place] [phone] PCP - General Physical Therapy 02/20/21
[2025-04-15 15:42] VITALS: BP 148/70; PULSE 58; O2SAT 98; BMI 23.5
--- NOTE | 2025-04-15 15:42 | MHC.PC.OV ---
Vital Signs 04/15/25 15:42 Height 5 ft 7 in Weight 150 lb BMI 23.5 BP 148/70 H Blood Pressure Location Lt brachial Position Sitting Pulse 58 Pulse Source Pulse Oximeter Pulse Oximetry (%) 98 Oxygen Delivery Method Room Air Intake Visit Reasons: 3 mo follow up CHF, HTN, cad Allergies No Known Allergies Allergy (Verified 04/15/25 15:43) Medication List - Last Reconciled 04/15/25 by Brissa Castano MD amlodipine 10 mg PO DAILY amoxicillin 2,000 mg orally 1 hour from the procedure; aspirin (Adult Low Dose Aspirin) 81 mg PO DAILY empagliflozin (Jardiance) 10 mg PO DAILY finasteride 5 mg PO DAILY 90 days furosemide 20 mg PO DAILY lisinopril 20 mg PO DAILY magnesium 250 mg PO DAILY omeprazole 20 mg PO DAILY rosuvastatin 40 mg PO DAILY tamsulosin 0.4 mg PO BEDTIME 90 days Tobacco use date assessed: 10/18/24 Fall risk assessment: No Falls in past year Last assessed Fall Risk: 04/15/25 Dental Screening Dental Screen Date: 12/29/24 [facility] Medical History (Updated 04/15/25 @ 16:09 by Brissa Castano MD) Aortic stenosis, severe BPH (benign prostatic hyperplasia) GERD (gastroesophageal reflux disease) Chronic kidney disease Hypercholesterolemia Hypertension Surgical History H/O aortic valve replacement History of surgery S/P tonsillectomy Anal fistula Hx of inguinal hernia surgery Social History Housing: House Alcohol intake: current Alcohol intake frequency: 0-2 drinks per day Patient Tobacco Use Status: Former Tobacco user Tobacco use type: Cigarette e-Cigarette/Vaping Use: Never Used Second Hand Smoke Exposure: No service: No Current occupational status: retired Current occupational exposures/hazards: No Cognitive needs: No Hearing needs: Yes Vision needs: Yes Questionnaire PHQ-9 Over the last 2 weeks, how often have you been bothered by any of the following problems? 1. Little interest or pleasure in doing things: not at all 2. Feeling down, depressed, or hopeless: not at all 3. Trouble falling or staying asleep, or sleeping too much: not at all 4. Feeling tired or having little energy: not at all 5. Poor appetite or overeating: not at all 6. Feeling bad about yourself - or that you are a failure or have let yourself or your family down: not at all 7. Trouble concentrating on things, such as reading the newspaper or watching television: not at all 8. Moving or speaking so slowly that other people could have noticed. Or the opposite - being so fidgety or restless that you have been moving around a lot more than usual: not at all 9. Thoughts that you would be better off or of hurting yourself in some way: not at all Total score: 0 Depression Screening Interpretation: Negative Depression Screening Done: Yes Source: Developed by Drs. Giuliano Davalos, Celia Wilson, José Manuel Mckenzie and colleagues, with an educational nel from [employer]. Thrive Questionnaire Date Thrive assessed: 12/23/24 I am a: Patient What is your living situation today?: I have a steady place to live Within the past 12 months, did the food you bought not last and you didn't have the money to get more?: Never true Within the past 12 months, did you worry whether your food would run out before you got money to buy more?: Never true Do you have trouble paying for medicines?: No Do you have trouble getting transportation to medical appointments?: No Do you have trouble paying your heating and electricity bill?: No Do you have trouble taking care of your child, family member or friend?: No Do you have trouble with day-to-day activities such as bathing, preparing meals, shopping, managing finances, etc.?: No Are you currently unemployed and looking for a job?: No Are you interested in more education?: No Please select the resources that you would like help with: None Currently or been in a relationship where the following occur: No concerns reported THRIVE Score: 0 AUDIT C Alcohol Use Questionnaire (AUDIT-C) 1. How often do you have a drink containing alcohol?: 2-3 times a week 2. How many drinks containing alcohol do you have on a typical day when you are drinking?: 1 or 2 3. How often do you have six or more drinks on one occasion?: Weekly Total Score: 6 BARI-7 AMB Questionnaire BARI-7 Date BARI - 7 assessed: 12/29/24 Source: Developed by Drs. Giuliano Davalos, Celia Wilson, José Manuel Mckenzie and colleagues, with an educational nel from [employer]. Physical exam (Primary Care) Vital Signs: Last Vital Signs Pulse 58 04/15/25 15:42 BP 148/70 H 04/15/25 15:42 Pulse Ox 98 04/15/25 15:42 Oxygen Delivery Method Room Air 04/15/25 15:42 BMI result Body Mass Index 23.5 Tobacco/Smoking Status: Tobacco use Status Tobacco use date assessed 10/18/24 04/15/25 15:55 Patient Tobacco Use Status Former Tobacco user 04/15/25 15:55 Tobacco use type Cigarette 04/15/25 15:55 e-Cigarette/Vaping Use Never Used 04/15/25 15:55 PHQ-9: PHQ-9 Score PHQ-9: Total score 0 04/15/25 15:55 Depression Screening Interpretation: Negative Thrive Assessment: Date of Thrive Assessment Date Thrive assessed 12/23/24 04/15/25 15:55 Currently or been in a relationship where the following occur: No concerns reported Const General: alert; No acute distress HENMT Other: Bilateral impacted cerumen Eyes Conjunctivae: conjunctivae normal Resp Auscultation: clear to auscultation bilaterally Cardio Rate: regular rate Rhythm: regular rhythm GI Inspection: Yes normal to inspection Extrem General: Yes normal to inspection and No edema Office Procedures Cerumen Removal From which ear canal was the cerumen removed: bilateral Removal: irrigation, otoscope w/curette, cerumen loop/spoon and other Notes: patient tolerated procedure well, no complications and ear canal clear [id number] Irrigation/Lavage Coding Level of Care Code Est Pt Level 4 (68344) Complex EM visit Add On G2211 Diagnoses Essential hypertension I10 Hypertension type: essential hypertension Diastolic heart failure I50.30 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 CAD (coronary artery disease) I25.10 Hypercholesterolemia E78.00 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 Decrease salt intake and exercise patient on amlodipine 10 mg once a day lisinopril 10 mg once a day but from the last note from Cardiology it was increased to 20 mg once a day (2) Diastolic heart failure: Comment: Dx [facility] Code(s): I50.30 - Unspecified diastolic (congestive) heart failure Category: Medical Plan: Weigh daily and continue with the furosemide 20 mg once a day (3) Prosthetic aortic valve stenosis: Comment: January 2022, May 2023, July 2023 1.2 Code(s): T82.857A - Stenosis of other cardiac prosthetic devices, implants and grafts, initial encounter Category: Medical Plan: Continue to monitor, cardiology follow-up last seen in December 2024 (4) CAD (coronary artery disease): Comment: CABG x 3 2012 [facility] CArdiology Brian White Code(s): I25.10 - Atherosclerotic heart disease of [place] coronary artery without angina pectoris Category: Medical Plan: Control the cholesterol, weight, blood pressure, patient on aspirin 81 mg once a day (5) Hypercholesterolemia: Code(s): E78.00 - Pure hypercholesterolemia, unspecified Category: Medical Plan: Avoid fried foods, chicken skin, eggs, butter margarine, pastries and meat. Be it pork or beef they have a lot of cholesterol LDL goal of less than 70 and triglyceride of less than 150 on rosuvastatin 40 mg once a day (6) Chronic kidney disease: Comment: nephrology Code(s): N18.9 - Chronic kidney disease, unspecified Category: Medical Qualifiers: Chronic kidney disease stage: stage 3 (moderate) Chronic kidney disease stage 3 subtype: stage 3b (GFR 30-44) Qualified Code(s): N18.32 - Chronic kidney disease, stage 3b Plan: Continue to follow-up with Nephrology. Patient needs blood work (7) Anemia: Code(s): D64.9 - Anemia, unspecified Category: Medical Plan: Continue to monitor (8) Impacted cerumen of both ears: Code(s): H61.23 - Impacted cerumen, bilateral Category: Medical Plan: scoop and irrigation done TM intact bilateral Plan History of Present Illness The patient is an 89-year-old male presenting for a follow-up visit. The patient has a history of hypertension, which is currently managed with amlodipine and lisinopril, with the latter recently increased to 20 mg once daily as per cardiology's recommendation. Chronic kidney disease is part of the patient's medical history, with a creatinine level of 2.14 noted in the last blood work. The patient has hypercholesterolemia, with an LDL goal of less than 70 mg/dL, currently managed with rosuvastatin 40 mg daily. The patient has a history of benign prostatic hyperplasia, managed with finasteride and tamsulosin. Coronary artery disease is part of the patient's history, managed with aspirin 81 mg daily. Severe aortic stenosis was diagnosed in 2012, with a valve area of 1.2 cm noted in the last echocardiogram. The patient has congestive heart failure with diastolic dysfunction, and is on furosemide 20 mg daily for management. [employer] Social History Review of Systems Physical Exam Results - Labs: Creatinine level of 2.14, LDL of 81 mg/dL, triglycerides of 39 mg/dL, total cholesterol of 162 mg/dL. - Tests: Echocardiogram showing valve area of 1.2 cm. Plan Patient was informed and verbally consented to the use of an ambient scribe for clinic note documentation during this visit. 1. Hypertension The patient's hypertension is managed with amlodipine 10 mg and lisinopril 20 mg daily, as per cardiology's recommendation to increase lisinopril dosage. 2. Chronic Kidney Disease The patient is advised to continue monitoring kidney function, with a creatinine level of 2.14 noted in recent labs. 3. Hypercholesterolemia The patient is on rosuvastatin 40 mg daily, with an LDL goal of less than 70 mg/dL. 4. Benign Prostatic Hyperplasia The patient is managed with finasteride and tamsulosin for benign prostatic hyperplasia. 5. Coronary Artery Disease The patient is on aspirin 81 mg daily for coronary artery disease management. 6. Severe Aortic Stenosis The patient has severe aortic stenosis with a valve area of 1.2 cm, as noted in the last echocardiogram. 7. Congestive Heart Failure The patient is on furosemide 20 mg daily for management of congestive heart failure with diastolic dysfunction. Discussion Notes Patient Instructions
== END 2025-04-15 16:37 | disposition home or self-care (01) ==
LOC: HO.HMCH 15:21
PROVIDERS: PCP Internal Medicine; Visit Provider Internal Medicine
DX: I12.9 Hypertensive chronic kidney disease with stage 1 through stage 4 chronic kidney disease, or unspecified chronic kidney disease (principal); I50.30 Unspecified diastolic (congestive) heart failure; N18.32 Chronic kidney disease, stage 3b; T82.857A Stenosis of other cardiac prosthetic devices, implants and grafts, initial encounter; I25.10 Atherosclerotic heart disease of native coronary artery without angina pectoris; E78.00 Pure hypercholesterolemia, unspecified; D64.9 Anemia, unspecified; H61.23 Impacted cerumen, bilateral

== ENCOUNTER → 2025-04-15 15:21 | Outpatient (BNVA) | payer MEDICARE, OTHER, SELFPAY | PROVIDERS: PCP Internal Medicine; Visit Provider Internal Medicine | DX: I13.0 Hypertensive heart and chronic kidney disease with heart failure and stage 1 through stage 4 chronic kidney disease, or unspecified chronic kidney disease (principal); N18.32 Chronic kidney disease, stage 3b; I50.30 Unspecified diastolic (congestive) heart failure; I25.10 Atherosclerotic heart disease of native coronary artery without angina pectoris; E78.00 Pure hypercholesterolemia, unspecified; D64.9 Anemia, unspecified; H61.23 Impacted cerumen, bilateral | CPT/HCPCS: 69210; 99212 ==

== ENCOUNTER 2025-06-08 11:22 | Outpatient (AMB) | payer MEDICARE, OTHER, SELFPAY ==
--- NOTE | 2025-06-08 11:59 | A.OFFVIS_ITS ---
Intake Visit Reasons: 1y/PSA/PVR Intake Note: Patient is Present for Follow Up Urology Medication:Finasteride, Tamsulosin Antibiotic Allergies: None Blood Thinners:Aspirin 0mlPVR: Plastic Jig And Fixture Builder Required: No Warehouse Inventory Clerk: Warehouse Inventory Clerk Present Accompanied by: Spouse Allergies No Known Allergies Allergy (Verified 06/08/25 12:06) HPI Comments Details: Zaheer is a very pleasant male. He is a patient of Dr. Castano. He is seen for the following urologic reasons. 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 Otherwise well Has had recurrent UTI in the past responsive to Levaquin PFSH Medical History Aortic stenosis, severe BPH (benign prostatic hyperplasia) GERD (gastroesophageal reflux disease) Chronic kidney disease Hypercholesterolemia Hypertension Surgical History H/O aortic valve replacement History of surgery S/P tonsillectomy Anal fistula Hx of inguinal hernia surgery Social History Housing: House Alcohol intake: current Alcohol intake frequency: 0-2 drinks per day Patient Tobacco Use Status: Former Tobacco user Tobacco use type: Cigarette e-Cigarette/Vaping Use: Never Used Second Hand Smoke Exposure: No service: No Current occupational status: retired Current occupational exposures/hazards: No Cognitive needs: No Hearing needs: Yes Vision needs: Yes Office Procedures Post Void Residual Post Residual Void Post Void Residual (PVR): 0 [id number] Void Residual by ultrasound Results AMB Urinalysis, Automated UA Leukoctes 0 Casa/uL Last Edit by MNAGO Clement on 06/08/25 12:12 UA Nitrite Negative Last Edit by MANGO Clement on 06/08/25 12:12 UA Urobilinogen 0.2 mg/dL Last Edit by MANGO Clement on 06/08/25 12:1 2 UA Protein 30 mg/dL Last Edit by Ewa Rubio RMA on 06/08/25 12:12 UA pH 6.0 Last Edit by Ewa Rubio RMA on 06/08/25 12:12 UA Blood 10 Darryl/uL Last Edit by Ewa Rubio RMA on 06/08/25 12:12 UA Specific [place] 1.015 Last Edit by Ewa Rubio RMA on 06/08/25 12: 12 UA Ketone Negative Last Edit by Ewa Rubio RMA on 06/08/25 12:12 UA Bilirubin 0 mg/dL Last Edit by Ewa Rubio RMA on 06/08/25 12:12 UA Glucose 1000 mg/dL Last Edit by Ewa Rubio A on 06/08/25 12:12 Results Reviewed Results Reviewed: Laboratory Last Values Urine pH (Auto) 6.0 06/08/25 12:11 Specific [place] (Auto) 1.015 06/08/25 12:11 Urine Protein (Auto) 30 mg/dL 06/08/25 12:11 Glucose (UA)(Auto) 1000 mg/dL 06/08/25 12:11 Urine Ketones (Auto) Negative 06/08/25 12:11 Urine Blood (Auto) 10 Darryl/uL 06/08/25 12:11 Urine Nitrite (Auto) Negative 06/08/25 12:11 Urine Bilirubin (Auto) 0 mg/dL 06/08/25 12:11 Urine Urobilinogen (Auto) 0.2 mg/dL 06/08/25 12:11 Leukocyte Esterase (Auto) 0 Casa/uL 06/08/25 12:11 Assessment & Plan Assessment & Plan Orders: Orders AMB Urinalysis Automated Today Z13.9 - Encounter for screening, unspecified AMB Post Void Residual by ultrasound Today R39.12 - Poor urinary stream Medications: Refilled finasteride 5 mg PO DAILY 90 tabs 3RF 90 days C61 - Malignant neoplasm of prostate, N40.0 - Benign prostatic hyperplasia without lower urinary tract symptoms Coding CPT Codes Post Residual Void - PVR CPT Code: [id number] Void Residual by ultrasound ([id number])
--- OUTSIDE RECORDS SUMMARY | 2025-06-08 14:39 | XMS_ITS | Clinical Summary ---
Author Organization [address] [place] [address] [place] [phone] Phone Care Team Providers Care Floor Runner Name Role Phone Leana Savage PT Primary [...] age to complete this topic Insurance MEDICARE [facility] Care Teams Floor Runner Relationship Specialty Start Date End Date Leana Savage, PT [address] [place] [phone] PCP - General Physical Therapy 02/20/21
== END 2025-06-08 12:46 | disposition home or self-care (01) ==
LOC: HO.HUSH 11:23
PROVIDERS: PCP Internal Medicine; Visit Provider Urology
DX: Z13.9 Encounter for screening, unspecified (principal)

== ENCOUNTER → 2025-06-08 11:22 | Outpatient (BNVA) | payer MEDICARE, OTHER, SELFPAY | PROVIDERS: PCP Internal Medicine; Visit Provider Urology | DX: N40.1 Benign prostatic hyperplasia with lower urinary tract symptoms (principal); R35.1 Nocturia; R39.12 Poor urinary stream | CPT/HCPCS: 51798; 81003; 99212 ==

== ENCOUNTER 2025-08-08 09:58 | Outpatient (AMB) | payer MEDICARE, OTHER, SELFPAY ==
[2025-08-08 10:06] VITALS: BP 122/62; PULSE 69; O2SAT 97; BMI 22.9
--- NOTE | 2025-08-08 10:06 | A.OFFPC_ITS ---
Vital Signs 08/08/25 10:06 Height 5 ft 7 in Weight 146 lb BMI 22.9 BP 122/62 Blood Pressure Location Lt brachial Position Sitting Pulse 69 Pulse Source Pulse Oximeter Pulse Oximetry (%) 97 Oxygen Delivery Method Room Air Intake Visit Reasons: Coronary artery disease Allergies No Known Allergies Allergy (Verified 08/08/25 10:07) Medication List - Last Reconciled 08/08/25 by Brissa Castano MD amlodipine 10 mg PO DAILY amoxicillin 2,000 mg orally 1 hour from the procedure; aspirin (Adult Low Dose Aspirin) 81 mg PO DAILY empagliflozin (Jardiance) 10 mg PO DAILY finasteride 5 mg PO DAILY 90 days furosemide 20 mg PO DAILY lisinopril 20 mg PO DAILY magnesium 250 mg PO DAILY omeprazole 20 mg PO DAILY rosuvastatin 40 mg PO DAILY tamsulosin 0.4 mg PO BEDTIME 90 days Tobacco use date assessed: 10/18/24 Fall risk assessment: No Falls in past year Last assessed Fall Risk: 08/08/25 Dental Screening Dental Screen Date: 12/29/24 HPI Coronary artery disease HPI Details nose rash - had radiation done for basal skin cancer . for the heart valve , has not heard and mosre likely stable HPI Comments History of Present Illness Details History of Present Illness The patient is an 89 year old male presenting for a follow-up visit for management of multiple chronic conditions. He has a history of hypertension, chronic kidney disease, hypercholesterolemia, coronary artery disease, benign prostatic hyperplasia, and congestive heart failure. He has a prosthetic aortic valve with some stenosis, which is monitored by cardiology and noted to be stable. He did not undergo a TAVR procedure. His last cardiology visit was in December 2024, and an echocardiogram was reportedly performed after that visit. The patient's history is significant for chronic kidney disease, managed by a cook helper pastry. His creatinine was 2.15 mg/dL in February 2025 and 2.35 mg/dL in May 2025, with a BUN of 53 mg/dL and GFR of 26-30% on the latter date. A cook helper pastry recently prescribed Jardiance. 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 For endocrine history, he has impaired glucose tolerance with a hemoglobin A1c of 5.9% in November 2024. A fasting blood glucose in May 2025 was elevated at 133 mg/dL. 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 He also sustained a head laceration from a skin tear in April 2025, which has since healed. Current medications include amlodipine, lisinopril, aspirin, rosuvastatin, tamsulosin, and finasteride. Health Maintenance - The patient is up to date on his flu a nd COVID-19 vaccinations. - Dietary counseling was provided, advis ing the patient to avoid sweets, candies, soda, and to limit sugary foods to manage his prediabetes. He was advised that dark chocolate is acceptable in moderation. - The patient was advised to avoid NSAID s due to his chronic kidney disease. - An order for fasting blood work, inclu ding a cholesterol panel, was placed. Social History - Diet: The patient reports a preference for sweets, including having a sweet in the morning and eating candy and cookies. Results - Labs (November 2024): Hemoglobin A1c of 5 .9%. - Labs (February 2025): Creatinine 2.15 mg/d L, sodium and potassium were normal, and blood glucose was 92 mg/dL. - Labs (May 2025): Fasting blood glu cose 133 mg/dL, BUN 53 mg/dL, creatinine 2.35 mg/dL, GFR 26-30%, normal sodium and potassium, and a slightly low blood count. [facility] Medical History Aortic stenosis, severe BPH (benign prostatic hyperplasia) GERD (gastroesophageal reflux disease) Chronic kidney disease Hypercholesterolemia Hypertension Surgical History H/O aortic valve replacement History of surgery S/P tonsillectomy Anal fistula Hx of inguinal hernia surgery Social History Housing: House Alcohol intake: current Alcohol intake frequency: 0-2 drinks per day Patient Tobacco Use Status: Former Tobacco user Tobacco use type: Cigarette e-Cigarette/Vaping Use: Never Used Second Hand Smoke Exposure: No service: No Current occupational status: retired Current occupational exposures/hazards: No Cognitive needs: No Hearing needs: Yes Vision needs: Yes Questionnaire Thrive Questionnaire Date Thrive assessed: 12/23/24 I am a: Patient What is your living situation today?: I have a steady place to live Within the past 12 months, did the food you bought not last and you didn't have the money to get more?: Never true Within the past 12 months, did you worry whether your food would run out before you got money to buy more?: Never true Do you have trouble paying for medicines?: No Do you have trouble getting transportation to medical appointments?: No Do you have trouble paying your heating and electricity bill?: No Do you have trouble taking care of your child, family member or friend?: No Do you have trouble with day-to-day activities such as bathing, preparing meals, shopping, managing finances, etc.?: No Are you currently unemployed and looking for a job?: No Are you interested in more education?: No Currently or been in a relationship where the following occur: No concerns reported THRIVE Score: 0 BARI-7 AMB Questionnaire BARI-7 Date BARI - 7 assessed: 12/29/24 Source: Developed by Drs. Giuliano Davalos, Celia Wilson, José Manuel Mckenzie and colleagues, with an educational nel from [employer]. Review of Systems Narrative Review of Systems - Neurological: Reports a fuzzy feeling and dizziness with rapid changes in position. - HEENT: Reports a feeling of fullness in both ears and experiences a dry mouth. - Genitourinary: Reports increased urinary frequency since starting Jardiance. Physical exam (Primary Care) Vital Signs: Last Vital Signs Pulse 69 08/08/25 10:06 BP 122/62 08/08/25 10:06 Pulse Ox 97 08/08/25 10:06 Oxygen Delivery Method Room Air 08/08/25 10:06 BMI result Body Mass Index 22.9 Tobacco/Smoking Status: Tobacco use Status Tobacco use date assessed 10/18/24 08/08/25 10:14 Patient Tobacco Use Status Former Tobacco user 08/08/25 10:14 Tobacco use type Cigarette 08/08/25 10:14 e-Cigarette/Vaping Use Never Used 08/08/25 10:14 Thrive Assessment: Date of Thrive Assessment Date Thrive assessed 12/23/24 08/08/25 10:14 Currently or been in a relationship where the following occur: No concerns reported Narrative Physical Exam - Vitals: Blood pressure is 126/54 mmHg. - Cardiovascular: Auscultation reveals a regular heart rate and rhythm. - HEENT: Otoscopic examination of both ears shows patent canals with some non- obstructive cerumen. No tenderness with manipulation of the pinna. 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 Decrease salt intake and exercise patient on amlodipine 10 mg once a day lisinopril 20 mg once a day (2) CAD (coronary artery disease): Comment: CABG x 3 2012 [facility] Brian White Code(s): I25.10 - Atherosclerotic heart disease of [place] coronary artery without angina pectoris Category: Medical Plan: Control the cholesterol, weight, blood pressure, continue with aspirin 81 mg once a day (3) Hypercholesterolemia: Code(s): E78.00 - Pure hypercholesterolemia, unspecified Category: Medical Plan: Avoid fried foods, chicken skin, eggs, butter margarine, pastries and meat. Be it pork or beef they have a lot of cholesterol patient on rosuvastatin 40 mg once a day (4) Chronic kidney disease: Comment: nephrology Code(s): N18.9 - Chronic kidney disease, unspecified Category: Medical Qualifiers: Chronic kidney disease stage: stage 3 (moderate) Chronic kidney disease stage 3 subtype: stage 3b (GFR 30-44) Qualified Code(s): N18.32 - Chronic kidney disease, stage 3b Plan: Keep well hydrated avoid NSAIDs (5) BPH (benign prostatic hyperplasia): Code(s): N40.0 - Benign prostatic hyperplasia without lower urinary tract symptoms Category: Medical Plan: Patient follows up with urology on tamsulosin and finasteride (6) Prosthetic aortic valve stenosis: Comment: January 2022, May 2023, July 2023 1.2 Code(s): T82.857A - Stenosis of other cardiac prosthetic devices, implants and grafts, initial encounter Category: Medical Plan: Continue to follow-up with cardiology (7) Basal cell carcinoma (BCC) of [place]: Comment: radiation done 06/2025 Dr. Rodriguez tip of nose x 22 treatment Code(s): C44.311 - Basal cell carcinoma of skin of nose Category: Medical Plan Plan Patient was informed and verbally consented to the use of an ambient scribe for clinic note documentation during this visit. 1. Hypertension The patient's blood pressure is well-controlled at 126/54 mmHg. He is on four agents that lower blood pressure: amlodipine, lisinopril, furosemide, and Jardiance. He will continue his current medications, including amlodipine 10 mg and lisinopril 20 mg daily. 2. Chronic Kidney Disease, Stage 4 The patient has stable stage 4 chronic kidney disease with a GFR of 26-30% and creatinine of 2.35 mg/dL. He reports dizziness on standing, which is likely related to being kept on the dry side to manage his congestive heart failure, as evidenced by an elevated BUN of 53. The plan is to continue follow-up with his cook helper pastry, avoid NSAIDs, and maintain careful hydration. His cook helper pastry has added Jardiance, which is beneficial for kidney function. 3. Coronary Artery Disease And Congestive Heart Failure The patient has stable coronary artery disease and congestive heart failure. He will continue aspirin 81 mg daily. Jardiance was recently added by nephrology, which is also a standard of care for congestive heart failure. He will continue to follow up with cardiology. 4. Prosthetic Aortic Valve Stenosis The patient has a prosthetic aortic valve with stenosis, which is considered stable. He will continue to be monitored by his hvac refrigeration technician, with his next follow-up scheduled for December. 5. Hypercholesterolemia Current cholesterol levels are unknown. He will continue rosuvastatin 40 mg daily. The patient was reassured about the safety and efficacy of rosuvastatin. New fasting blood work has been ordered to check cholesterol levels. 6. Impaired Glucose Tolerance The patient has prediabetes, with a recent fasting glucose of 133 mg/dL, which is exacerbated by his diet. He was recently started on Jardiance by his cook helper pastry, which will also help manage his blood sugar. Extensive dietary counseling was provided to reduce sugar intake, including avoidance of candy and soda. Upcoming lab work will re-evaluate his glucose levels. 7. Benign Prostatic Hyperplasia The patient has BPH managed by urology. He will continue tamsulosin and finasteride and follow up with his urologist as scheduled. Discussion Notes I reviewed the patient's extensive medical history and discussed recent lab results from May 2025, which he provided. I explained that his kidney function numbers, including a creatinine of 2.35 and BUN of 53, were elevated, and that his GFR indicates his kidneys are functioning at about 26-30%. I educated him that his symptoms of dizziness upon standing are a side effect of the diuretics used to keep him on the dry side to prevent fluid overload from congestive heart failure. I clarified that the new medication prescribed by his cook helper pastry, Jardiance, is a diabetes medication that also provides significant benefits for his heart and kidney conditions. We discussed his elevated blood sugar, and I provided extensive counseling on the importance of reducing his intake of sweets, candy, and soda. I reassured him that rosuvastatin is an important and effective medication for his cholesterol, despite concerns from information seen online. I ordered new fasting blood work to obtain a current cholesterol panel and other metabolic markers, and I instructed the patient to get a printout of the lab request upon checkout. I will call him with any abnormal results once I receive them. I also emphasized the importance of informing my office where and when he gets labs drawn, as we have had difficulty receiving results from outside facilities. Patient Instructions - Please get the new blood work done soon. You will need to fast (no food or drink, except water) before the test. - Ask the vest front presser for a printed copy of your lab order form before you leave today. - Be sure to let our office know where you get your labs done so we can get the results. - Continue taking all of your medications as prescribed, including amlodipine, lisinopril, aspirin, rosuvastatin, Jardiance, tamsulosin, and finasteride. - Do not take NSAID pain relievers like ibuprofen (Advil, Motrin) or naproxen (Aleve). - You may feel dizzy if you get up too quickly. Move slowly when you change positions, like going from sitting to standing. - Your new medicine, Jardiance, will make you urinate more often. This is expected. - It is very important to cut back on sugar to help your health. Avoid candy, cookies, soda, and other sweets. - Continue your follow-up appointments with your heart doctor (hvac refrigeration technician) and your bladder doctor (urologist). Orders: Orders NT Pro B Type Natriuretic Pept Today I25.10 - Atherosclerotic heart disease of [place] coronary artery without angina pectoris
--- OUTSIDE RECORDS SUMMARY | 2025-08-08 10:58 | XMS_ITS | Clinical Summary ---
Author Organization [address] [place] [address] [place] [phone] Phone Care Team Providers Care Book Retailer Name Role Phone Leana Savage PT Primary [...] 07/06/2024 Depression Screening 08/11/2024 COVID-19 Vaccine ( - season) 2025 06/07/2024, 04/22/2022, 07/23/2021 Influenza Vaccine [...] age to complete this topic Insurance [facility] Care Teams Book Retailer Relationship Specialty Start Date End Date Leana Savage, PT [address] [place] [phone] PCP - General Physical Therapy 02/20/21
== END 2025-08-08 11:08 | disposition home or self-care (01) ==
PROVIDERS: PCP Internal Medicine; Visit Provider Internal Medicine
DX: I10 Essential (primary) hypertension (principal); I25.10 Atherosclerotic heart disease of native coronary artery without angina pectoris; E78.00 Pure hypercholesterolemia, unspecified; N18.32 Chronic kidney disease, stage 3b; N40.0 Benign prostatic hyperplasia without lower urinary tract symptoms; T82.857A Stenosis of other cardiac prosthetic devices, implants and grafts, initial encounter; C44.311 Basal cell carcinoma of skin of nose

== ENCOUNTER → 2025-08-08 09:58 | Outpatient (BNVA) | payer MEDICARE, OTHER, SELFPAY | PROVIDERS: PCP Internal Medicine; Visit Provider Internal Medicine | DX: I12.9 Hypertensive chronic kidney disease with stage 1 through stage 4 chronic kidney disease, or unspecified chronic kidney disease (principal); N18.32 Chronic kidney disease, stage 3b; I25.10 Atherosclerotic heart disease of native coronary artery without angina pectoris; E78.00 Pure hypercholesterolemia, unspecified; N40.0 Benign prostatic hyperplasia without lower urinary tract symptoms; T82.857A Stenosis of other cardiac prosthetic devices, implants and grafts, initial encounter; C44.311 Basal cell carcinoma of skin of nose | CPT/HCPCS: 99212 ==